=== PATIENT | female | born 1970 | race Caucasian/White ===

== ENCOUNTER 2016-06-06 17:15 | Emergency (ER) | payer OTHER ==
[2016-06-06 17:23] VITALS: BP 144/90; TEMP 98.8; BMI 25.8
--- NOTE | 2016-06-06 18:08 | ED.PDOC ---
General ED Provider: Dr. VIPIN URBINA JR Chief Complaint: Back Pain Stated Complaint: DOING DISHES TODAY AROUND 1400. RIGHT HAND STARTED TO BURN AND HURT.[End]back pain 98.8 82 20 95% 144/90 9/10 RIGHT SECOND MC TENDERNESS AND SWELLING SINCE ARISING NO KNOWN INJURY, TENDER SEVERE BURNING WHEN WASHING DISHES 2+ EDEMA. HYSTERECTOMY, TWO BLADDER TUCKS, DC TIMES TWO, LEFT FOOT SURGERY, RIGHT BIG TOE SURGERY, GB REMOVED,. [ End ]. dm copd depr anx bipolar Time Seen by Physician: 18:07 Mode of Arrival: Walk-In Information Source: Patient Exam Limitations: No limitations Primary Care Provider: HANNY NORTON Nursing and Triage Documentation Reviewed and Agree: No Review of Systems - Review Of Systems Constitutional: Reports: No symptoms Eyes: Reports: No symptoms Ears, Nose, Mouth, Throat: Reports: No symptoms Respiratory: Reports: No symptoms Cardiac: Reports: No symptoms GI: Reports: No symptoms : Reports: No symptoms Musculoskeletal: Reports: Joint pain (RIGHT SECOND MC TENDERNESS AND EDEMA - PAIN RADIATES UP TO ELBOW- NO FOREARM TENDERNESS) Neurological: Reports: No symptoms Endocrine: Reports: No symptoms Hematologic/Lymphatic: Reports: No symptoms All Other Systems: Other Past Medical History - Past Medical History Previously Healthy: No Endocrine: Reports: DM 2 Cardiovascular: Reports: None Respiratory: Reports: COPD Hematological: Reports: None Gastrointestinal: Reports: None Genitourinary: Reports: None Neuro/Psych: Reports: Anxiety, Depression, PTSD Musculoskeletal: Reports: Arthritis, Joint Pain Cancer: Reports: None Last Menstrual Period: 2003 Other Pertinent Past Medical History: polinoidal cyst x2, bladder tuck x2, bunion surg x2 - Surgical History General Surgical History: Reports: Hysterectomy (hysterectomy, D and C x2), Cholecystectomy, Orthopedic (Rt gr toe surgery, tarsal tunnel decompression x2) , Other (polinoidal cyst x2, bladder tuck x2, bunion surg x2,, oral surg) - Family History Family History: Reports: Unknown - Social History Smoking Status: Current some day smoker Hx Substance Use: No Alcohol Screening: None - Immunizations Tetanus Shot up to Date: Yes Physical Exam - Physical Exam Appearance: Well-appearing Pain Distress: Mild Neck: Supple Respiratory: Airway patent, Breath sounds equal, Respirations nonlabored, Rhonchi Cardiovascular: RRR, Pulses normal, No rub, No murmur Musculoskeletal: Normal strength, ROM intact, No edema, No calf tenderness ( FULL ROM HAND AND FINGERS DESPITE TENDERNESS NOTE LEFT FOOT SURGERY FEET INTACT NO LESIONS NOT DISCOLORATION ABOUT SURGICAL SCARS CONSISTENT WITH UNRESOLVED IRON DEPOSITS) Skin: Warm, Dry Neurological: Sensation intact, Motor intact, Reflexes intact, Cranial nerves intact, Alert, Oriented Psychiatric: Affect appropriate, Mood appropriate Interpretation - Radiology Interpretation Radiology Interpretation By: Radiologist Radiology Results: Negative Exam Interpreted: Other (right hand) Re-Evaluation - Re-Evaluation Time of Re-Evaluation: 20:09 (DISCUSSED INTERATION OF ANTIDEPRESSANT- PATIENT STATES SHE HALLUCINATES WITH ALEVE CAN ONLY TAKE DEMEROL AND ULTRAM) Status: Improved Critical Care Note - Critical Care Note Total Time (mins): 0 Course - Course Hematology/Chemistry: 06/06/16 18:54 Orders, Labs, Meds: Lab Review 06/06/16 18:54 WBC 10.16 RBC 5.18 Hgb 16.6 H Hct 44.9 MCV 86.7 MCH 32.0 H MCHC 37.0 H RDW Coeff of Ian 11.7 Plt Count 258 Immature Gran % (Auto) 0.4 Neut % (Auto) 52.9 Lymph % (Auto) 35.1 [place] % (Auto) 6.5 Eos % (Auto) 4.7 Baso % (Auto) 0.4 Immature Gran # (Auto) 0.0 Neut # 5.4 Lymph # 3.6 H [place] # 0.7 Eos # 0.5 Baso # 0.0 Orders Category Date Time Status BLOOD CULTURE Stat LAB 06/06/16 18:54 Received CBC W/ AUTO DIFF Stat LAB 06/06/16 18:54 Completed HAND, RIGHT 3 VIEWS Stat RADS 06/06/16 18:54 Completed Vital Signs: Temp Pulse Resp BP Pulse Ox 06/06/16 17:16 98.8 F 82 20 144/90 H 95 Departure - Departure Time of Disposition: 19:53 Disposition: HOME SELF-CARE Discharge Problem: Cellulitis Qualifiers: Site of cellulitis of extremity: upper extremity Laterality: right Instructions: Cellulitis (ED) Condition: Good Pt referred to PMD for follow-up: Yes Additional Instructions: BACTRIM ANTIBIOTIC TWICE A DAY TAKE TWO FIRST DOSE (NAPROSYN)ULTRAM FOR PAIN (NOTE BAD REACTION TO ALEVE) ELEVATE HAND ABOVE HEART TWICE A DAY FOR ONE HOUR RECHECK PMD 3-5 DAYS SOONER IF ANY WORSENING Please call your Family Physician as soon as possible to schedule a follow-up appointment. Prescriptions: Naproxen [Naprosyn] 500 mg PO Q12HR PRN #30 tablet PRN Reason: PAIN Sulfamethoxazole/Trimethoprim [Bactrim Ds 800/160 mg] 1 tab PO Q12HR #14 tablet Tramadol HCl [Ultram] 50 mg PO Q6H PRN #14 tablet PRN Reason: PAIN Allergies/Adverse Reactions: Allergies divalproex sodium Allergy (Severe, Verified 06/06/16 17:26) Unknown oxcarbazepine [From Trileptal] Allergy (Severe, Verified 06/06/16 17:26) made m esick kiwi Allergy (Intermediate, Verified 06/06/16 17:26) Vomiting acetaminophen [From Lortab] Adverse Reaction (Verified 06/06/16 17:26) aspirin [From Percodan] Adverse Reaction (Verified 06/06/16 17:26) codeine Adverse Reaction (Verified 06/06/16 17:26) hydrocodone bitartrate [From Lortab] Adverse Reaction (Verified 06/06/16 17:26) ibuprofen Adverse Reaction (Verified 06/06/16 17:26) ketorolac tromethamine [From Toradol] Adverse Reaction (Verified 06/06/16 17:26) metformin HCl [From Glucophage] Adverse Reaction (Verified 06/06/16 17:26) morphine Adverse Reaction (Verified 05/09/16 19:02) oxycodone HCl [From Percocet] Adverse Reaction (Verified 05/09/16 19:02) oxycodone terephthalate [From Percodan] Adverse Reaction (Verified 05/09/16 19: 02) peach [[place]] Adverse Reaction (Verified 05/09/16 19:02) propoxyphene napsylate [From Darvocet-N 100] Adverse Reaction (Verified 19:02) elisa Adverse Reaction (Verified 05/09/16 19:02) tomato [Tomato] Adverse Reaction (Verified 05/09/16 19:02) ziprasidone HCl [From Geodon] Adverse Reaction (Verified 05/09/16 19:02) ziprasidone mesylate [From Geodon] Adverse Reaction (Verified 05/09/16 19:02) peaches Adverse Reaction (Uncoded 05/09/16 19:02) Home Medications: Ambulatory Orders Quetiapine Fumarate [Seroquel] 100 mg PO BEDTIME 12/10/12 Lamotrigine [Lamictal] 200 mg PO DAILY 08/03/13 Fluoxetine HCl [Prozac] 40 mg PO DAILY 02/20/14 Trazodone HCl [Desyrel] 75 mg PO BEDTIME #30 01/01/16 Pantoprazole Sodium [Protonix] 40 mg PO DAILY #30 tablet. 03/31/16 Lamotrigine [Lamictal Xr] 250 mg PO BEDTIME #30 05/16/16 Naproxen [Naprosyn] 500 mg PO Q12HR PRN #30 tablet 06/06/16 Sulfamethoxazole/Trimethoprim [Bactrim Ds 800/160 mg] 1 tab PO Q12HR #14 tablet 06/06/16 Tramadol HCl [Ultram] 50 mg PO Q6H PRN #14 tablet 06/06/16
[2016-06-06 19:01] LABS: BASOPHILS % (AUTO) 0.4 % (0.0-3.0); EOSINOPHILS # (AUTO) 0.5 K/ul (0.0-0.7); EOSINOPHILS % (AUTO) 4.7 % (0.0-7.0); HEMATOCRIT 44.9 % (37.0-47.0); HEMOGLOBIN 16.6 g/dl (12.0-16.0); IMMATURE GRANULOCYTE % (AUTO) 0.4 % (0.0-5.0); LYMPHOCYTES # (AUTO) 3.6 K/uL (0.60-3.4); LYMPHOCYTES % (AUTO) 35.1 (10.0-50.0); MEAN CORPUSCULAR VOLUME 86.7 fl (81.0-99.0); MONOCYTES # (AUTO) 0.7 K/uL (0.4-2.0); MONOCYTES % (AUTO) 6.5 (0-10); NEUTROPHILS # (AUTO) 5.4 K/ul (2.0-6.9); NEUTROPHILS % (AUTO) 52.9; PLATELET COUNT 258 10^3/uL (140-440); RED BLOOD COUNT 5.18 10^6/ul (4.20-5.40); WHITE BLOOD COUNT 10.16 K/ul (4.6-10.2)
--- NOTE | 2016-06-06 19:23 | DI ---
EXAM: Right hand; PA, lateral, and oblique views HISTORY: Second metacarpal tenderness, swelling, and warmth. No injury FINDINGS: The bone density is maintained. The joint spaces are fairly well maintained. No acute er osions are detected. The soft tissues are normal. No fracture, subluxation, or radiopaque foreign b odies are detected. OPINION: Normal radiographs of the right hand.
== END 2016-06-06 20:36 | disposition home or self-care (01) ==
LOC: ED 17:15
DX: L03.113 Cellulitis of right upper limb (principal); M54.9 Dorsalgia, unspecified; F17.210 Nicotine dependence, cigarettes, uncomplicated; E11.9 Type 2 diabetes mellitus without complications
CPT/HCPCS: 36415; 85025; 87040; 99282

== ENCOUNTER 2016-08-12 12:07 | Outpatient (CLI) ==
[2016-08-12 14:08] LABS: ERYTHROCYTE SEDIMENTATION RATE 5 mm/hr (0-20); ESR INTERNAL QC INTERNAL QC VALID
[2016-08-13 07:54] LABS: RHEUMATOID ARTHRITIS FACTOR < 10.0 IU/mL (0.0-13.9)
[2016-08-13 15:08] LABS: ANTI-NUCLEAR ANTIBODY SCREEN Negative (Negative)
== END 2016-08-12 12:08 | disposition home or self-care (01) ==
LOC: LAB 12:07
PROVIDERS: ATTEND Nurse Practitioner Family
DX: M25.50 Pain in unspecified joint (principal)
CPT/HCPCS: 36415; 85651; 86038; 86430

== ENCOUNTER 2016-08-20 17:28 | Emergency (ER) | payer OTHER ==
[2016-08-20 17:34] VITALS: BP 135/80; TEMP 97.5; BMI 25.0
[2016-08-20] MEDS ORDERED: LIDOCAINE 1 % AMP 5 ML (SUTURES) ONE (18:32)
[2016-08-20] MEDS ORDERED: LIDOCAINE 1 % AMP 5 ML (SUTURES) SUBCUT STA (18:33)
--- NOTE | 2016-08-20 18:42 | ED.PDOC ---
General ED Provider: Dr. QIAN LEDESMA-ER Chief Complaint: Laceration Stated Complaint: i accidentally cut my calf Time Seen by Physician: 18:40 Mode of Arrival: Walk-In Information Source: Patient Exam Limitations: No limitations Primary Care Provider: HANNY NORTON Nursing and Triage Documentation Reviewed and Agree: Yes Skin Complaint Exam - Laceration/Lower Ext. Complaint/Exam Location of Injury: Right, Leg Mechanism of Injury: Laceration Onset/Duration: 4hrs Symptoms Are: Still present Initial Severity: Mild Current Severity: Mild Aggravating: Movement Alleviating: Compression Associated Signs and Symptoms: Denies: Fever, Chills, Erythema, Numbness, Tingling Differential Diagnoses: Laceration Review of Systems - Review Of Systems Constitutional: Reports: No symptoms Eyes: Reports: No symptoms Ears, Nose, Mouth, Throat: Reports: No symptoms Respiratory: Reports: No symptoms Cardiac: Reports: No symptoms GI: Reports: No symptoms : Reports: No symptoms Musculoskeletal: Reports: No symptoms Skin: Reports: No symptoms Neurological: Reports: No symptoms Endocrine: Reports: No symptoms Hematologic/Lymphatic: Reports: No symptoms All Other Systems: Reviewed and Negative Past Medical History - Past Medical History Previously Healthy: No Endocrine: Reports: DM 2 Cardiovascular: Reports: None Respiratory: Reports: COPD Hematological: Reports: None Gastrointestinal: Reports: None Genitourinary: Reports: None Neuro/Psych: Reports: Anxiety, Depression, PTSD Musculoskeletal: Reports: Arthritis, Joint Pain Cancer: Reports: None Last Menstrual Period: none Other Pertinent Past Medical History: polinoidal cyst x2, bladder tuck x2, bunion surg x2 - Surgical History General Surgical History: Reports: Hysterectomy (hysterectomy, D and C x2), Cholecystectomy, Orthopedic (Rt gr toe surgery, tarsal tunnel decompression x2) , Other (polinoidal cyst x2, bladder tuck x2, bunion surg x2,, oral surg) - Family History Family History: Reports: Unknown - Social History Smoking Status: Current some day smoker Hx Substance Use: No Alcohol Screening: None Lives: With family - Immunizations Tetanus Shot up to Date: Yes (2 years ago) Physical Exam - Physical Exam Appearance: Well-appearing Eyes: RAMBO, EOMI, Conjunctiva clear ENT: Ears normal, Nose normal, Oropharynx normal Neck: Supple Respiratory: Airway patent Cardiovascular: RRR GI/: Soft, Nontender, No masses, Bowel sounds normal, No Organomegaly Musculoskeletal: Normal strength, ROM intact, No edema, No calf tenderness Skin: Warm, Dry, Normal color Neurological: Sensation intact, Motor intact, Reflexes intact, Cranial nerves intact, Alert, Oriented Psychiatric: Affect appropriate Procedures - Laceration/Wound Repair No standard instances Wound Description: Linear Wound Length (cm): 1,.5cm right calf Wound Irrigated: Yes Wound Prep: Saline, Hibiclens Anesthesia: Lidocaine Wound Repaired With: Sutures Suture Size and Type: 4,.0 prolene Number of Sutures: 2 Layer Closure?: No Critical Care Note - Critical Care Note Total Time (mins): 0 Course - Course Orders, Labs, Meds: Orders Category Date Time Status Lidocaine HCl/Pf [Lidocaine 1 % Amp 5 ml (Sutures)] MEDS 08/20/16 18:32 Discontinued 5 ml .ROUTE .STK-MED ONE Lidocaine HCl/Pf [Lidocaine 1 % Amp 5 ml (Sutures)] MEDS 08/20/16 18:33 Discontinued 5 ml SUBCUT ONCE STA Medications Discontinued Medications Generic Name Dose Route Start Last Admin Trade Name Freq PRN Reason Stop Dose Admin Lidocaine HCl 5 ml 08/20/16 18:33 Lidocaine 1 % Amp 5 Ml (Sutures) SUBCUT 08/20/16 18:34 ONCE STA Vital Signs: Temp Pulse Resp BP Pulse Ox 08/20/16 17:29 97.5 F L 84 18 135/80 91 L Departure - Departure Time of Disposition: 18:42 Disposition: HOME SELF-CARE Discharge Problem: Laceration - injury Instructions: Laceration (ED) Condition: Good Pt referred to PMD for follow-up: Yes Additional Instructions: sutures out in 7 days--return if any signs of infection Allergies/Adverse Reactions: Allergies divalproex sodium Allergy (Severe, Verified 08/20/16 17:35) Unknown oxcarbazepine [From Trileptal] Allergy (Severe, Verified 08/20/16 17:35) made m esick kiwi Allergy (Intermediate, Verified 08/20/16 17:35) Vomiting acetaminophen [From Lortab] Adverse Reaction (Verified 08/20/16 17:35) aspirin [From Percodan] Adverse Reaction (Verified 08/20/16 17:35) codeine Adverse Reaction (Verified 08/20/16 17:35) hydrocodone bitartrate [From Lortab] Adverse Reaction (Verified 08/20/16 17:35) ibuprofen Adverse Reaction (Verified 08/20/16 17:35) ketorolac tromethamine [From Toradol] Adverse Reaction (Verified 08/20/16 17:35) metformin HCl [From Glucophage] Adverse Reaction (Verified 08/20/16 17:35) morphine Adverse Reaction (Verified 08/20/16 17:35) oxycodone HCl [From Percocet] Adverse Reaction (Verified 08/20/16 17:35) oxycodone terephthalate [From Percodan] Adverse Reaction (Verified 08/20/16 17: 35) peach [[place]] Adverse Reaction (Verified 08/20/16 17:35) propoxyphene napsylate [From Darvocet-N 100] Adverse Reaction (Verified 17:35) elisa Adverse Reaction (Verified 08/20/16 17:35) tomato [Tomato] Adverse Reaction (Verified 08/20/16 17:35) ziprasidone HCl [From Geodon] Adverse Reaction (Verified 08/20/16 17:35) ziprasidone mesylate [From Geodon] Adverse Reaction (Verified 08/20/16 17:35) peaches Adverse Reaction (Uncoded 05/09/16 19:02) Home Medications: Ambulatory Orders Quetiapine Fumarate [Seroquel] 100 mg PO BEDTIME 12/10/12 Fluoxetine HCl [Prozac] 40 mg PO DAILY 02/20/14 Trazodone HCl [Desyrel] 75 mg PO BEDTIME #30 01/01/16 Pantoprazole Sodium [Protonix] 40 mg PO DAILY #30 tablet. 03/31/16 Lamotrigine [Lamictal Xr] 250 mg PO BEDTIME #30 05/16/16 Naproxen [Naprosyn] 500 mg PO Q12HR PRN #30 tablet 06/06/16 Tramadol HCl [Ultram] 50 mg PO Q6H PRN #14 tablet 06/06/16 Disposition Discussed With: Patient
== END 2016-08-20 18:51 | disposition home or self-care (01) ==
LOC: ED 17:28
DX: S81.811A Laceration without foreign body, right lower leg, initial encounter (principal); W45.8XXA Other foreign body or object entering through skin, initial encounter; F17.210 Nicotine dependence, cigarettes, uncomplicated
CPT/HCPCS: 99282

== ENCOUNTER 2016-09-27 22:39 | Emergency (ER) | payer OTHER ==
[2016-09-27 22:44] VITALS: BP 126/79; TEMP 97.9; BMI 25.8
--- NOTE | 2016-09-27 23:20 | DI ---
EXAM: Three views of the left foot. HISTORY: Pain and swelling. FINDINGS: The bones are intact with no evidence of fracture. The joint spaces are maintained. Ther e is an enthesophyte along the plantar margin of the calcaneus. There is soft tissue swelling in th e forefoot. Impression: No evidence of fracture. Soft tissue swelling as described. Calcaneal enthesophyte.
[2016-09-27] MEDS ORDERED: DECADRON 4 MG/ML SDV IM STA (23:36)
[2016-09-27 23:49] LABS: BASOPHILS % (AUTO) 0.4 % (0.0-3.0); EOSINOPHILS # (AUTO) 0.4 K/ul (0.0-0.7); EOSINOPHILS % (AUTO) 4.6 % (0.0-7.0); HEMATOCRIT 41.7 % (37.0-47.0); HEMOGLOBIN 15.5 g/dl (12.0-16.0); IMMATURE GRANULOCYTE % (AUTO) 0.4 % (0.0-5.0); LYMPHOCYTES # (AUTO) 3.3 K/uL (0.60-3.4); LYMPHOCYTES % (AUTO) 35.1 (10.0-50.0); MEAN CORPUSCULAR HEMOGLOBIN 32.4 pg (27.0-31.0); MEAN CORPUSCULAR HGB CONC 37.2 (31.8-35.4); MEAN CORPUSCULAR VOLUME 87.1 fl (81.0-99.0); MONOCYTES # (AUTO) 0.7 K/uL (0.4-2.0); MONOCYTES % (AUTO) 7.2 (0-10); NEUTROPHILS # (AUTO) 4.9 K/ul (2.0-6.9); NEUTROPHILS % (AUTO) 52.3; PLATELET COUNT 198 10^3/uL (140-440); RED BLOOD COUNT 4.79 10^6/ul (4.20-5.40)
[2016-09-28 00:07] LABS: ANION GAP 17.3; BUN/CREATININE RATIO 22.22; CALCIUM 8.8 mg/dL (8.2-10.2); CREATININE 0.72 mg/dL (0.60-1.30); POTASSIUM 3.3 mmol/L (3.5-5.10); URIC ACID 6.9 mg/dL (2.4-6.0)
--- NOTE | 2016-09-28 00:09 | DI ---
EXAM: Left ankle three views HISTORY: Pain swelling COMPARISON: Left ankle 01/29/2011 FINDINGS: Mild soft tissue swelling is noted laterally. The ankle mortise and talar dome are intac t. There is a small plantar calcaneal spur.. There is no acute fracture. IMPRESSION: Mild soft tissue swelling is noted laterally. Small plantar calcaneal spur .
[2016-09-28 00:26] LABS: ERYTHROCYTE SEDIMENTATION RATE 12 mm/hr (0-20); ESR INTERNAL QC INTERNAL QC VALID
--- NOTE | 2016-09-28 00:36 | ED.PDOC ---
General ED Provider: Dr. QIAN LEDESMA-ER Chief Complaint: Foot Pain/Injury Stated Complaint: my ankle hurts Time Seen by Physician: 22:45 Mode of Arrival: Walk-In Information Source: Patient Exam Limitations: No limitations Primary Care Provider: HANNY NORTON Nursing and Triage Documentation Reviewed and Agree: Yes Musculoskeletal Complaint Exam - Ankle/Foot Complaint/Exam Location of Injury: Reports: Left, Ankle Mechanism of Injury: Reports: No known trauma Symptoms Are: Reports: Still present Onset of Pain: Reports: Immediate Initial Severity: Mild Current Severity: Mild Location: Reports: Discrete (left ankle) Character: Reports: Dull, Aching Alleviating: Reports: Rest, Position Aggravating: Reports: Movement, Weight bearing, Prolonged standing Able to Bear Weight: Yes Associated Signs and Symptoms: Reports: Swelling Gout Risk Factors: Reports: Diabetes, HTN Lower Extremity Findings: Present: Swelling, Tenderness, Limited range of motion Achilles Tendon Abnormality: No Tenderness: Present: Lateral malleolus Limited Range of Motion: Present: Inversion, Eversion, Dorsiflexion Differential Diagnosis: Gout, Sprain, Strain, Tendonitis, Bursitis Review of Systems - Review Of Systems Constitutional: Reports: No symptoms Eyes: Reports: No symptoms Ears, Nose, Mouth, Throat: Reports: No symptoms Respiratory: Reports: No symptoms Cardiac: Reports: No symptoms GI: Reports: No symptoms : Reports: No symptoms Musculoskeletal: Reports: Joint pain, Joint swelling Skin: Reports: No symptoms Neurological: Reports: No symptoms Endocrine: Reports: No symptoms Hematologic/Lymphatic: Reports: No symptoms All Other Systems: Reviewed and Negative Past Medical History - Past Medical History Previously Healthy: No Endocrine: Reports: DM 2 Cardiovascular: Reports: None Respiratory: Reports: COPD Hematological: Reports: None Gastrointestinal: Reports: None Genitourinary: Reports: None Neuro/Psych: Reports: Anxiety, Depression, PTSD Musculoskeletal: Reports: Arthritis, Joint Pain Cancer: Reports: None Last Menstrual Period: n/a Other Pertinent Past Medical History: polinoidal cyst x2, bladder tuck x2, bunion surg x2 - Surgical History General Surgical History: Reports: Hysterectomy (hysterectomy, D and C x2), Cholecystectomy, Orthopedic (Rt gr toe surgery, tarsal tunnel decompression x2) , Other (polinoidal cyst x2, bladder tuck x2, bunion surg x2,, oral surg) - Family History Family History: Reports: Unknown - Social History Smoking Status: Current some day smoker Hx Substance Use: No Alcohol Screening: None Physical Exam - Physical Exam Appearance: Well-appearing, No pain distress, Well-nourished Pain Distress: Mild Eyes: RAMBO, EOMI, Conjunctiva clear ENT: Ears normal, Nose normal, Oropharynx normal Neck: Supple Respiratory: Airway patent, Breath sounds clear Cardiovascular: RRR, Pulses normal, No rub, No murmur GI/: Soft, Nontender, No masses, Bowel sounds normal, No Organomegaly Musculoskeletal: Normal strength, Limited ROM Skin: Warm Neurological: Sensation intact, Motor intact, Reflexes intact, Cranial nerves intact, Alert, Oriented Psychiatric: Affect appropriate Interpretation - Radiology Interpretation Radiology Interpretation By: Radiologist Radiology Results: Negative Critical Care Note - Critical Care Note Total Time (mins): 0 Course - Course Hematology/Chemistry: 09/27/16 23:45 09/27/16 23:45 Orders, Labs, Meds: Lab Review 09/27/16 23:45 WBC 9.30 RBC 4.79 Hgb 15.5 Hct 41.7 MCV 87.1 MCH 32.4 H MCHC 37.2 H RDW Coeff of Ian 11.3 L Plt Count 198 Immature Gran % (Auto) 0.4 Neut % (Auto) 52.3 Lymph % (Auto) 35.1 [place] % (Auto) 7.2 Eos % (Auto) 4.6 Baso % (Auto) 0.4 Immature Gran # (Auto) 0.0 Neut # 4.9 Lymph # 3.3 [place] # 0.7 Eos # 0.4 Baso # 0.0 ESR 12 Sodium 138 Potassium 3.3 L Chloride 104 Carbon Dioxide 20 L Anion Gap 17.3 BUN 16 Creatinine 0.72 Estimated GFR (MDRD) 88.00 BUN/Creatinine Ratio 22.22 Glucose 284 H Uric Acid 6.9 H Calcium 8.8 Orders Category Date Time Status BASIC METABOLIC PANEL Stat LAB 09/27/16 23:45 Completed CBC W/ AUTO DIFF Stat LAB 09/27/16 23:45 Completed ESR Stat LAB 09/27/16 23:45 Completed URIC ACID Stat LAB 09/27/16 23:45 Completed Dexamethasone 4 mg/ml Inj [Decadron 4 mg/ml Sdv] MEDS 09/27/16 23:36 Discontinued 4 mg IM ONCE STA ANKLE, LEFT MIN 3 VIEWS Stat RADS 09/27/16 23:35 Completed FOOT, LEFT 3 VIEWS Stat RADS 09/27/16 22:55 Completed Medications Discontinued Medications Generic Name Dose Route Start Last Admin Trade Name Robert PRN Reason Stop Dose Admin Dexamethasone Sodium Phosphate 4 mg 09/27/16 23:36 09/27/16 23:47 Decadron 4 Mg/Ml Sdv IM 09/27/16 23:37 4 mg ONCE STA Administration Vital Signs: Temp Pulse Resp BP Pulse Ox 09/27/16 22:40 97.9 F 85 16 126/79 95 Departure - Departure Time of Disposition: 00:35 Disposition: HOME SELF-CARE Discharge Problem: Ankle pain Qualifiers: Laterality: left Chronicity: acute Qualifier Code: (M25.572) Pain in left ankle and joints of left foot Instructions: Arthralgia (ED) Condition: Good Pt referred to PMD for follow-up: Yes Additional Instructions: elevate ankle tonight--return reis Allergies/Adverse Reactions: Allergies divalproex sodium Allergy (Severe, Verified 09/27/16 22:44) Unknown oxcarbazepine [From Trileptal] Allergy (Severe, Verified 09/27/16 22:44) made m esick kiwi Allergy (Intermediate, Verified 09/27/16 22:44) Vomiting acetaminophen [From Lortab] Adverse Reaction (Verified 09/27/16 22:44) aspirin [From Percodan] Adverse Reaction (Verified 09/27/16 22:44) codeine Adverse Reaction (Verified 09/27/16 22:44) hydrocodone bitartrate [From Lortab] Adverse Reaction (Verified 09/27/16 22:44) ibuprofen Adverse Reaction (Verified 09/27/16 22:44) ketorolac tromethamine [From Toradol] Adverse Reaction (Verified 09/27/16 22:44) metformin HCl [From Glucophage] Adverse Reaction (Verified 09/27/16 22:44) morphine Adverse Reaction (Verified 09/27/16 22:44) oxycodone HCl [From Percocet] Adverse Reaction (Verified 09/27/16 22:44) oxycodone terephthalate [From Percodan] Adverse Reaction (Verified 09/27/16 22: 44) peach [[place]] Adverse Reaction (Verified 09/27/16 22:44) propoxyphene napsylate [From Darvocet-N 100] Adverse Reaction (Verified 22:44) elisa Adverse Reaction (Verified 09/27/16 22:44) tomato [Tomato] Adverse Reaction (Verified 09/27/16 22:44) ziprasidone HCl [From Geodon] Adverse Reaction (Verified 09/27/16 22:44) ziprasidone mesylate [From Geodon] Adverse Reaction (Verified 09/27/16 22:44) peaches Adverse Reaction (Uncoded 09/27/16 22:44) Home Medications: Ambulatory Orders Quetiapine Fumarate [Seroquel] 100 mg PO BEDTIME 12/10/12 Fluoxetine HCl [Prozac] 40 mg PO DAILY 02/20/14 Trazodone HCl [Desyrel] 75 mg PO BEDTIME #30 01/01/16 Pantoprazole Sodium [Protonix] 40 mg PO DAILY #30 tablet. 03/31/16 Lamotrigine [Lamictal Xr] 250 mg PO BEDTIME #30 05/16/16 Disposition Discussed With: Patient
== END 2016-09-28 00:55 | disposition home or self-care (01) ==
LOC: ED 22:39
DX: M25.572 Pain in left ankle and joints of left foot (principal); F17.210 Nicotine dependence, cigarettes, uncomplicated; Z79.899 Other long term (current) drug therapy
CPT/HCPCS: 36415; 80048; 84550; 85025; 85651; 96372; 99283

== ENCOUNTER 2016-12-02 10:00 | Outpatient (RCR) ==
--- NOTE | 2016-11-25 10:56 | RS.OTEVAL ---
Subjective Date of Note: 11/25/16 Visit #: 1 Date of Evaluation: 11/25/16 Payer Source: MEDICARE Date of Onset/Injury/Change in Status: 10/10/16 Surgery Performed?: Yes Date of Procedure: 11/13/16 Treatment Diagnosis: Carpal Tunnel Syndrome Treatment Side (optional): Right *Precautions: Sutures, edema of RUE Prior Level of Function.....Patient was independent with: ADL's, Self Care, Work /Vocation, Caregiving, Ambulation/Mobility, Community Integration/Access History of Condition/Mechanism of Injury: Pt reported her RUE hand hurt so bad that she could not touch it to anything. She could not use it and it burned. She said her pain has really gotten better. Functional Limitations: Sleep, Self Care, ADL's, Carrying Current Complaints/Gains: She had pain yesterday. She said her pain has lessened and now she can touch her fingers to her thumb. Medical History Medical History: Diabetes Medical History Comments:: Had a cut on her RLE and had stitches in ER last month. RUE carpal tunnel release on November 13, 2016. 2 bladder tucks, 2 bunions removed from toes. 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 Pain Assessment - Pain Description Pain Description: Burning Pain Location: Right hypothenar eminence. Pain Description: tightness Current Pain Intensity: 0 Worst Pain Intensity: 8 Functional Outcome Measures - G Codes & Severity Modifier G Codes: G8984 carry current status is CM is 85% impaired. G8985 Carry goals status is CH 0 % Source of G Code score: Carrying, moving, and handling Observation - Observation Inspection: Pt has sutures in Right CTR. Handedness: Left Girth Measurement Upper: RUE Thumb is 6.7 CM, Index 6.8 CM, Long 6.8 CM. Ring 6.6 CM, small 6.0 CM,. LUE Thumb is 7.2 CM, Index 6.5 CM, Long 6.5 CM, Ring 6.4 CM, Small 5.5 CM Additional Comments: Pt is able to make a full fist with tightness of thumb hypothenar eminence. Shoulder ROM: Bilaterally WFL's Shoulder Muscle Strength: Bilaterally WFL's Elbow ROM: Bilaterally WFL's Elbow Muscle Strength: Bilaterally WFL's Wrist ROM: Left WFL's Wrist Muscle Strength: Left WFL's - Right Wrist/Hand ROM Right Wrist Extension: 60 Right Wrist Flexion: 50 (with pain) Right Wrist Radial Deviation: 15 Right Wrist Ulnar Deviation: 15 Right Forearm Pronation: 90 Right Forearm Supination: 90 Right Wrist ROM Testing Limitations: Muscle Weakness Right Hand ROM: Pt can make a full fist - Right Wrist Strength Right Wrist Extension: 4- Good- Right Wrist Flexion: 3+ Fair+ Right Wrist Radial Deviation: 4- Good- Right Wrist Ulnar Deviation: 4- Good- Right Forearm Pronation: 4+ Good + Right Forearm Supination: 4+ Good + - Special Tests Tinel Test: Negative Right Clinical Fellow Strength Left Hand Clinical Fellow Strength: na Right Hand Clinical Fellow Strength: na due to sutures Palpation Palpation Findings: Tenderness Sensation Right Upper Extremity: Intact/Normal Sensation Description: Within Normal Limits Comments: No complaints of impaired sensation of RUE hand today. Modalities - Treatment Modality: Ultrasound Parameters/Method Applied: .4 w/cm2 to decrease edema and tenderness. Treatment Area: RUE Palm/wrist Patient Position: Sitting Interventions - Exercise/Activities Exercise/Activities/Manual Therapy: Tendon glide education and patient demonstrated understanding by completing them with her tendon pictures. - Charges Total Direct Minutes: 60 Total Treatment Time: 30 Procedures billed for this date of service:: Coreen Moderate, Therex Assessment Assessment: Pt has sutures and tenderness. Pt has mild edema of digits and palm of RUE hand. Patient Education: Education of diagnosis, Home Exercise Program Rehab Potential: Good Short Term Goals Goal #1: Pt to increase AROM of Wrist flexion to 0-55 deg. without tenderness Goal to be met by: 12/02/16 Progress towards goal: Progressing Goal #2: Pt to increase energy control officer to 15# Goal to be met by: 12/02/16 Goal #3: Pt to be independent with scar massage. Goal to be met by: 12/02/16 Goal #4: Pt to be independent with HEP Goal to be met by: 12/02/16 Paper Mill Superintendent Goals Goal #1: Pt to increase AROM of Wrist flexion to WFL without tenderness Goal to be met by: 12/02/16 Goal #2: Pt to increase mass energy control officer of RUE to 30# Goal to be met by: 12/09/16 Goal #3: Pt to be independent with scar massage of RUE Goal to be met by: 12/09/16 Goal #4: Pt to be independent with HEP. Goal to be met by: 12/09/16 Plan - Treatment to be provided Procedures: Therapeutic Exercises, Therapeutic Activity, Neuromuscular Rehab, Massage, Patient Education Modalities: Ultrasound/Phonophoresis - Treatment Plan Frequency: 2 X week Duration: 2 weeks ORDER # VISITS AND/OR THROUGH DATE: 4 - Treatment Code (1) Right carpal tunnel syndrome Comments: Current CM is 85%, and Goal is CH to 0% for Carrying, moving, and handling.
--- NOTE | 2016-11-29 13:33 | RS.OTDNOTE ---
Subjective Date of Note: 11/29/16 Visit #: 2 Date of Evaluation: 11/25/16 Payer Source: MEDICARE Date of Onset/Injury/Change in Status: 10/10/16 Surgery Performed?: Yes Date of Procedure: 11/13/16 Treatment Diagnosis: Carpal Tunnel Syndrome Treatment Side (optional): Right *Precautions: Sutures, edema of RUE Prior Level of Function.....Patient was independent with: ADL's, Self Care, Work /Vocation, Caregiving, Ambulation/Mobility, Community Integration/Access History of Condition/Mechanism of Injury: Pt reported her RUE hand hurt so bad that she could not touch it to anything. She could not use it and it burned. She said her pain has really gotten better. Functional Limitations: Sleep, Self Care, ADL's, Carrying Current Complaints/Gains: Pt returned to MD yesterday and had sutures removed. Pt states pain/tenderness with palpation on several areas. Pt has c/o numbness in digits 1-3 and the most increased c/o pain with thumb to palm P/AROM. Clear/ cloudy discharge from incision site with wrist PROM, steri-strips applied. Pain Assessment - Pain Description Pain Description: Burning, Tightness, Radiating, Sharp, Throbbing, Aching, Acute Pain Location: Right hypothenar eminence. Pain Description: tightness Current Pain Intensity: 3 Worst Pain Intensity: 7 Modalities - Treatment Modality: Ultrasound Parameters/Method Applied: .04w/cm2 wrist and thenar eminence Patient Position: Sitting Interventions - Exercise/Activities Exercise/Activities/Manual Therapy: Tendon glide education continued with patient performing utilizing print out with pictures as guide. Digit/thumb opposition, wrist flexion/extension, pro/supination and ball squeezes also performed. Retrograde massage ed and tolerated well - Charges Total Direct Minutes: 40 Total Treatment Time: 40 Procedures billed for this date of service:: US EX MT Assessment Patient Education: Education of diagnosis, Body/Joint mechanics, Home Exercise Program, Home Safety, Activity Modification, Education of Plan of Care Patient demonstrates compliance with HEP?: Yes Short Term Goals Goal #1: Pt to increase AROM of Wrist flexion to 0-55 deg. without tenderness Goal to be met by: 12/02/16 Progress towards goal: Progressing Goal #2: Pt to increase monitor technician to 15# Goal to be met by: 12/02/16 Progress towards goal: Progressing Goal #3: Pt to be independent with scar massage. Goal to be met by: 12/02/16 Progress towards goal: Progressing Goal #4: Pt to be independent with HEP Goal to be met by: 12/02/16 Progress towards goal: Progressing Potter Or Ceramic Artist Goals Goal #1: Pt to increase AROM of Wrist flexion to WFL without tenderness Goal to be met by: 12/02/16 Progress towards goal: Progressing Goal #2: Pt to increase mass monitor technician of RUE to 30# Goal to be met by: 12/09/16 Progress towards goal: Progressing Goal #3: Pt to be independent with scar massage of RUE Goal to be met by: 12/09/16 Progress towards goal: Progressing Goal #4: Pt to be independent with HEP. Goal to be met by: 12/09/16 Progress towards goal: Progressing Plan PLAN OF CARE EXPIRES ON:: 12/09/16 ORDER # VISITS AND/OR THROUGH DATE: 4 PLAN: Continue Plan of Care Frequency: 2 X week Duration: 1 week
== END 2016-12-09 ==
PROVIDERS: ATTEND Orthopaedic Surgery
DX: G56.01 Carpal tunnel syndrome, right upper limb (principal)

== ENCOUNTER 2016-12-11 13:11 | Outpatient (RCR) ==
--- NOTE | 2016-12-11 14:02 | RS.OTDNOTE ---
Subjective Date of Note: 12/11/16 Visit #: 4 Date of Evaluation: 11/25/16 Payer Source: MEDICARE Date of Onset/Injury/Change in Status: 10/10/16 Surgery Performed?: Yes Treatment Diagnosis: Carpal Tunnel Syndrome Treatment Side (optional): Right *Precautions: Sutures, edema of RUE Prior Level of Function.....Patient was independent with: ADL's, Self Care, Work /Vocation, Caregiving, Ambulation/Mobility, Community Integration/Access History of Condition/Mechanism of Injury: Pt reported her RUE hand hurt so bad that she could not touch it to anything. She could not use it and it burned. She said her pain has really gotten better. Functional Limitations: Sleep, Self Care, ADL's, Carrying Current Complaints/Gains: Pt states c/o wkness. States she has the most trouble with opening jars and soda's. States 0 c/o pain at moment but states some "shooting pain" at times that goes from her wrist to her elbow, but only lasts for a few seconds to 2 mins at a time. Pain Assessment - Pain Description Pain Description: Dull Pain Location: Right hypothenar eminence. Pain Description: tightness Current Pain Intensity: 0 Worst Pain Intensity: 3 Modalities - Treatment Modality: Ultrasound Parameters/Method Applied: .04w/cm2 x 10 mins with prolonged wrist stretch Patient Position: Sitting Interventions - Exercise/Activities Exercise/Activities/Manual Therapy: Tendon glide, retro-grade massage, and HEP education performed. Red/green t-putty, digit opposition, medium strength hand gripper and red digi-flex performed. - Charges Total Direct Minutes: 35 Total Treatment Time: 35 Procedures billed for this date of service:: US EX Assessment Patient Education: Education of diagnosis, Body/Joint mechanics, Home Exercise Program, Home Safety, Activity Modification, Education of Plan of Care Patient demonstrates compliance with HEP?: Yes Short Term Goals Goal #1: Pt to increase AROM of Wrist flexion to 0-55 deg. without tenderness Goal to be met by: 12/02/16 Progress towards goal: Met Goal #2: Pt to increase counseling services manager to 15# Goal to be met by: 12/02/16 Progress towards goal: Partially Met Comments: 14# 12# 16# Goal #3: Pt to be independent with scar massage. Goal to be met by: 12/02/16 Progress towards goal: Partially Met Goal #4: Pt to be independent with HEP Goal to be met by: 12/02/16 Progress towards goal: Met Ship Washer Goals Goal #1: Pt to increase AROM of Wrist flexion to WFL without tenderness Goal to be met by: 12/02/16 Progress towards goal: Met Goal #2: Pt to increase mass counseling services manager of RUE to 30# Goal to be met by: 12/11/16 Progress towards goal: Not Met Goal #3: Pt to be independent with scar massage of RUE Goal to be met by: 12/09/16 Progress towards goal: Partially Met Goal #4: Pt to be independent with HEP. Goal to be met by: 12/09/16 Progress towards goal: Met Plan PLAN OF CARE EXPIRES ON:: 12/11/16 ORDER # VISITS AND/OR THROUGH DATE: 4 PLAN: Plan for Discharge Frequency: DC Duration: DC
== END 2017-01-09 ==
PROVIDERS: ATTEND Orthopaedic Surgery
DX: G56.01 Carpal tunnel syndrome, right upper limb (principal)

== ENCOUNTER 2016-12-21 17:07 | Emergency (ER) ==
[2016-12-21 17:24] VITALS: BP 130/86; TEMP 98.6; BMI 24.4
[2016-12-21] MEDS ORDERED: TORADOL IM STA (17:45)
--- NOTE | 2016-12-21 17:52 | ED.PDOC ---
General ED Provider: Dr. SVITLANA KOCH Chief Complaint: Wrist Pain/Injury Stated Complaint: Patient grand son fell on left wrist ever since hurting to move, had h/o CTS repair. Time Seen by Physician: 18:06 Mode of Arrival: Walk-In Information Source: Patient Primary Care Provider: HANNY NORTON Nursing and Triage Documentation Reviewed and Agree: Yes Musculoskeletal Complaint Exam - Hand/Wrist Complaint/Exam Location of Pain: Reports: Left, Wrist Mechanism of Injury: Reports: Trauma Symptoms Are: Still present Onset of Pain: Reports: Immediate Initial Severity: Moderate Current Severity: Moderate Location: Reports: Discrete Character: Reports: Aching, Throbbing Alleviating: Reports: None Aggravating: Reports: Movement Associated Signs and Symptoms: Denies: Swelling, Redness, Bruising, Fever, Weakness, Numbness, Tingling Dominant Hand: Right Related Surgical History: Reports: None Hand/Wrist Findings: Present: Swelling Differential Diagnoses: Closed Fracture, Sprain Review of Systems - Review Of Systems Constitutional: Reports: No symptoms Eyes: Reports: No symptoms Ears, Nose, Mouth, Throat: Reports: No symptoms Respiratory: Reports: No symptoms Cardiac: Reports: No symptoms GI: Reports: No symptoms : Reports: No symptoms Musculoskeletal: Reports: Joint pain, Joint swelling, Muscle pain Skin: Reports: No symptoms Neurological: Reports: No symptoms Endocrine: Reports: No symptoms Hematologic/Lymphatic: Reports: No symptoms All Other Systems: Reviewed and Negative Past Medical History - Past Medical History Previously Healthy: No Endocrine: Reports: DM 2 Cardiovascular: Reports: None Respiratory: Reports: COPD Hematological: Reports: None Gastrointestinal: Reports: None Genitourinary: Reports: None Neuro/Psych: Reports: Anxiety, Depression, PTSD Musculoskeletal: Reports: Arthritis, Joint Pain Cancer: Reports: None Last Menstrual Period: n/a Other Pertinent Past Medical History: polinoidal cyst x2, bladder tuck x2, bunion surg x2 - Surgical History General Surgical History: Reports: Hysterectomy (hysterectomy, D and C x2), Cholecystectomy, Orthopedic (Rt gr toe surgery, tarsal tunnel decompression x2) , Other (polinoidal cyst x2, bladder tuck x2, bunion surg x2,, oral surg) - Family History Family History: Reports: Unknown - Social History Smoking Status: Current some day smoker Smoking Cessation Counseling Time: > 3 min - 10 min Hx Substance Use: No Alcohol Screening: None Physical Exam - Physical Exam Appearance: Well-appearing, No pain distress, Well-nourished Eyes: RAMBO, EOMI, Conjunctiva clear ENT: Ears normal, Nose normal, Oropharynx normal Respiratory: Airway patent, Breath sounds clear, Breath sounds equal, Respirations nonlabored Cardiovascular: RRR, Pulses normal, No rub, No murmur GI/: Soft, Nontender, No masses, Bowel sounds normal, No Organomegaly Musculoskeletal: Normal strength, ROM intact, No edema, No calf tenderness Skin: Warm, Dry, Normal color Neurological: Sensation intact, Motor intact, Reflexes intact, Cranial nerves intact, Alert, Oriented Psychiatric: Affect appropriate, Mood appropriate Critical Care Note - Critical Care Note Total Time (mins): 0 Course - Course Orders, Labs, Meds: Orders Category Date Time Status Ketorolac Tromethamine [Toradol] MEDS 12/21/16 17:45 Discontinued 30 mg IM ONCE STA WRIST, RIGHT 3 VIEWS Stat RADS 12/21/16 17:45 Taken Medications Discontinued Medications Generic Name Dose Route Start Last Admin Trade Name Marvq PRN Reason Stop Dose Admin Ketorolac Tromethamine 30 mg 12/21/16 17:45 Toradol IM 12/21/16 17:46 ONCE STA Vital Signs: Temp Pulse Resp BP Pulse Ox 12/21/16 17:08 98.6 F 86 16 130/86 95 Departure - Departure Time of Disposition: 18:09 Disposition: HOME SELF-CARE Discharge Problem: Injury of wrist Instructions: Wrist Injury (ED) Condition: Good Pt referred to PMD for follow-up: Yes Additional Instructions: needs f/u with Ortho rest hot pack Allergies/Adverse Reactions: Allergies divalproex sodium Allergy (Severe, Verified 12/21/16 17:12) Unknown oxcarbazepine [From Trileptal] Allergy (Severe, Verified 12/21/16 17:12) made m esick kiwi Allergy (Intermediate, Verified 12/21/16 17:12) Vomiting acetaminophen [From Lortab] Adverse Reaction (Verified 12/21/16 17:12) aspirin [From Percodan] Adverse Reaction (Verified 12/21/16 17:12) codeine Adverse Reaction (Verified 12/21/16 17:12) hydrocodone bitartrate [From Lortab] Adverse Reaction (Verified 12/21/16 17:12) ibuprofen Adverse Reaction (Verified 12/21/16 17:12) ketorolac tromethamine [From Toradol] Adverse Reaction (Verified 12/21/16 17:12) metformin HCl [From Glucophage] Adverse Reaction (Verified 12/21/16 17:12) morphine Adverse Reaction (Verified 12/21/16 17:12) oxycodone HCl [From Percocet] Adverse Reaction (Verified 12/21/16 17:12) oxycodone terephthalate [From Percodan] Adverse Reaction (Verified 12/21/16 17: 12) peach [[place]] Adverse Reaction (Verified 12/21/16 17:12) propoxyphene napsylate [From Darvocet-N 100] Adverse Reaction (Verified 17:12) elisa Adverse Reaction (Verified 12/21/16 17:12) tomato [Tomato] Adverse Reaction (Verified 12/21/16 17:12) ziprasidone HCl [From Geodon] Adverse Reaction (Verified 12/21/16 17:12) ziprasidone mesylate [From Geodon] Adverse Reaction (Verified 12/21/16 17:12) peaches Adverse Reaction (Uncoded 09/27/16 22:44) Home Medications: Ambulatory Orders Fluoxetine HCl [Prozac] 40 mg PO DAILY 02/20/14 Pantoprazole Sodium [Protonix] 40 mg PO DAILY #30 tablet. 03/31/16 Disposition Discussed With: Patient, Family
[2016-12-21] MEDS ORDERED: ULTRAM PO STA (18:35)
--- NOTE | 2016-12-21 19:12 | DI ---
EXAM: Right wrist three-view HISTORY: Injury and pain COMPARISON: None FINDINGS: The bones are normal. The joints are normal. No focal soft tissue abnormality. IMPERSSION: Normal examination.
== END 2016-12-21 18:49 | disposition home or self-care (01) ==
LOC: ED 17:07
DX: S69.91XA Unspecified injury of right wrist, hand and finger(s), initial encounter (principal); W50.0XXA Accidental hit or strike by another person, initial encounter; F17.210 Nicotine dependence, cigarettes, uncomplicated
CPT/HCPCS: 99283

== ENCOUNTER 2017-02-02 02:22 | Emergency (ER) ==
[2017-02-02 02:43] VITALS: BP 161/95; TEMP 98.2; BMI 24.3
[2017-02-02] MEDS ORDERED: SOLU-MEDROL 125 MG IM STA (02:46)
[2017-02-02] MEDS ORDERED: DUONEB NEB STA (02:47)
--- NOTE | 2017-02-02 02:52 | ED.PDOC ---
General ED Provider: Dr. GRACE SANDERS Chief Complaint: Sore Throat Stated Complaint: Pateint is a 46 year old female who comes to the ER with piercing, burning, stabbing pain in throat, aggravated by non- productive cough. Time Seen by Physician: 02:49 Mode of Arrival: Walk-In Information Source: Patient Exam Limitations: No limitations Primary Care Provider: HANNY NORTON Nursing and Triage Documentation Reviewed and Agree: Yes Review of Systems - Review Of Systems Constitutional: Reports: No symptoms Eyes: Reports: No symptoms Ears, Nose, Mouth, Throat: Reports: Throat pain Respiratory: Reports: Cough, Short of air Cardiac: Reports: No symptoms GI: Reports: No symptoms : Reports: No symptoms Musculoskeletal: Reports: No symptoms Skin: Reports: No symptoms Neurological: Reports: No symptoms Endocrine: Reports: No symptoms Hematologic/Lymphatic: Reports: No symptoms All Other Systems: Reviewed and Negative Past Medical History - Past Medical History Previously Healthy: No Endocrine: Reports: DM 2 Cardiovascular: Reports: None Respiratory: Reports: COPD Hematological: Reports: None Gastrointestinal: Reports: None Genitourinary: Reports: None Neuro/Psych: Reports: Anxiety, Depression, PTSD Musculoskeletal: Reports: Arthritis, Joint Pain Cancer: Reports: None Last Menstrual Period: N/A - hysterectomy Other Pertinent Past Medical History: polinoidal cyst x2, bladder tuck x2, bunion surg x2 - Surgical History General Surgical History: Reports: Hysterectomy (hysterectomy, D and C x2), Cholecystectomy, Orthopedic (Rt gr toe surgery, tarsal tunnel decompression x2) , Other (polinoidal cyst x2, bladder tuck x2, bunion surg x2,, oral surg) - Family History Family History: Reports: Unknown - Social History Smoking Status: Current some day smoker Hx Substance Use: No Alcohol Screening: None - Immunizations Tetanus Shot up to Date: Yes Physical Exam - Physical Exam Appearance: Ill-appearing, Well-nourished Ill-appearing: Mild Pain Distress: Mild Eyes: RAMBO, EOMI, Conjunctiva clear ENT: Ears normal, Nose normal, Oropharynx normal Neck: Supple Respiratory: Breath sounds diminished Cardiovascular: RRR, Pulses normal, No rub, No murmur GI/: Soft, Nontender, No masses, Bowel sounds normal, No Organomegaly Musculoskeletal: Normal strength, ROM intact, No edema, No calf tenderness Skin: Warm, Dry, Normal color Neurological: Alert, Oriented Psychiatric: Anxious Critical Care Note - Critical Care Note Total Time (mins): 0 Course - Course Orders, Labs, Meds: Orders Category Date Time Status NEBULIZER TREATMENT Stat CARDIO 02/02/17 02:47 Ordered RAPID FLU A/B Stat LAB 02/02/17 02:47 Uncollected STREP SCREEN Stat LAB 02/02/17 02:47 Uncollected Ipratropium/Albuterol Neb [Duoneb] MEDS 02/02/17 02:47 Stat 1 vial NEB ONCE STA Methylprednisolone Sod Succ/Pf [Solu-Medrol 125 mg] MEDS 02/02/17 02:46 Stat 125 mg IM ONCE STA Medications Discontinued Medications Generic Name Dose Route Start Last Admin Trade Name Freq PRN Reason Stop Dose Admin Albuterol/Ipratropium 1 vial 02/02/17 02:47 Duoneb NEB 02/02/17 02:48 ONCE STA Methylprednisolone Sodium Succinate 125 mg 02/02/17 02:46 Solu-Medrol 125 Mg IM 02/02/17 02:47 ONCE STA Vital Signs: Temp Pulse Resp BP Pulse Ox 02/02/17 02:34 98.2 F 86 19 161/95 H 94 L Departure - Departure Time of Disposition: 03:21 Disposition: HOME SELF-CARE Discharge Problem: Sore throat symptom, Cough Pharyngitis Qualifiers: Pharyngitis/tonsillitis etiology: other specified organisms Qualified Code(s): J02.8 - Acute pharyngitis due to other specified organisms Instructions: Pharyngitis (ED) Condition: Fair Pt referred to PMD for follow-up: Yes Additional Instructions: Stop smoking Follow up with PCP in 3 days Prescriptions: Methylprednisolone [Medrol Dosepak] 4 mg PO DIRECTED #1 pkg Allergies/Adverse Reactions: Allergies divalproex sodium Allergy (Severe, Unverified 02/02/17 02:27) Unknown oxcarbazepine [From Trileptal] Allergy (Severe, Unverified 02/02/17 02:27) made m justynack kiwi Allergy (Intermediate, Unverified 02/02/17 02:27) Vomiting acetaminophen [From Lortab] Adverse Reaction (Unverified 02/02/17 02:27) aspirin [From Percodan] Adverse Reaction (Unverified 02/02/17 02:27) codeine Adverse Reaction (Unverified 02/02/17 02:27) hydrocodone bitartrate [From Lortab] Adverse Reaction (Unverified 02/02/17 02:27 ) ibuprofen Adverse Reaction (Unverified 02/02/17 02:27) ketorolac tromethamine [From Toradol] Adverse Reaction (Unverified 02/02/17 02: 27) metformin HCl [From Glucophage] Adverse Reaction (Unverified 02/02/17 02:27) morphine Adverse Reaction (Unverified 02/02/17 02:27) oxycodone HCl [From Percocet] Adverse Reaction (Unverified 02/02/17 02:27) oxycodone terephthalate [From Percodan] Adverse Reaction (Unverified 02/02/17 02 :27) peach [[place]] Adverse Reaction (Unverified 02/02/17 02:27) propoxyphene napsylate [From Darvocet-N 100] Adverse Reaction (Unverified 02:27) risperidone [From Risperdal] Adverse Reaction (Verified 02/02/17 02:27) elisa Adverse Reaction (Unverified 02/02/17 02:27) tomato [Tomato] Adverse Reaction (Unverified 02/02/17 02:27) ziprasidone HCl [From Geodon] Adverse Reaction (Unverified 02/02/17 02:27) ziprasidone mesylate [From Geodon] Adverse Reaction (Unverified 02/02/17 02:27) peaches Adverse Reaction (Uncoded 02/02/17 02:27) Home Medications: Ambulatory Orders Fluoxetine HCl [Prozac] 40 mg PO DAILY 02/20/14 Pantoprazole Sodium [Protonix] 40 mg PO DAILY #30 tablet. 03/31/16 Tramadol HCl 50 mg PO BID #14 tablet 12/21/16 Aspirin/Acetaminophen/Caffeine [Excedrin Migraine Caplet] 2 tab PO Q4-6H PRN Diphenhydram/PE/Dm/Acetamin/GG [Daytime-Cold Nbkojwwth-Yqa-Eoa] 1 tab PO BID PRN 02/02/17 Methylprednisolone [Medrol Dosepak] 4 mg PO DIRECTED #1 pkg 02/02/17
[2017-02-02 03:10] LABS: FLU INTERNAL QC INTERNAL QC VALID; RAPID FLU A NEGATIVE (NEGATIVE); RAPID FLU B NEGATIVE (NEGATIVE)
[2017-02-02] MEDS ORDERED: TYLENOL PO STA (03:20)
== END 2017-02-02 03:40 | disposition home or self-care (01) ==
LOC: ED 02:22
DX: J02.9 Acute pharyngitis, unspecified (principal); R05 Cough; F17.210 Nicotine dependence, cigarettes, uncomplicated
CPT/HCPCS: 87651; 87804; 87880; 94640; 96372; 99283

== ENCOUNTER 2017-02-03 05:33 | Inpatient (IN) ==
[2017-02-03] MEDS ORDERED: DUONEB NEB STA (05:47)
[2017-02-03] MEDS ORDERED: DECADRON 4 MG/ML SDV IM STA (05:48)
[2017-02-03] MEDS ORDERED: XOPENEX 1.25 MG NEB STA (05:48)
[2017-02-03 06:10] LABS: BASOPHILS # (AUTO) 0.1 K/uL (0-0.2); BASOPHILS % (AUTO) 0.4 % (0.0-3.0); EOSINOPHILS % (AUTO) 0.2 % (0.0-7.0); HEMATOCRIT 41.2 % (37.0-47.0); HEMOGLOBIN 15.6 g/dl (12.0-16.0); IMMATURE GRANULOCYTE % (AUTO) 0.8 % (0.0-5.0); LYMPHOCYTES # (AUTO) 2.8 K/uL (0.60-3.4); LYMPHOCYTES % (AUTO) 21.4 (10.0-50.0); MEAN CORPUSCULAR HEMOGLOBIN 31.9 pg (27.0-31.0); MEAN CORPUSCULAR HGB CONC 37.9 (31.8-35.4); MEAN CORPUSCULAR VOLUME 84.3 fl (81.0-99.0); MONOCYTES # (AUTO) 1.2 K/uL (0.4-2.0); NEUTROPHILS % (AUTO) 68.2; PLATELET COUNT 301 10^3/uL (140-440); RED BLOOD COUNT 4.89 10^6/ul (4.20-5.40); WHITE BLOOD COUNT 13.18 K/ul (4.6-10.2)
[2017-02-03 06:17] LABS: ALBUMIN 3.6 g/dL (3.4-5.0); ALBUMIN/GLOBULIN RATIO 0.95; ANION GAP 19.8; BILIRUBIN,TOTAL 0.47 mg/dL (0.00-1.20); BUN/CREATININE RATIO 16.12; CALCIUM 10.5 mg/dL (8.2-10.2); CREATININE 0.93 mg/dL (0.60-1.30); POTASSIUM 3.8 mmol/L (3.5-5.10); TOTAL PROTEIN 7.4 g/dL (6.4-8.2)
[2017-02-03 06:25] LABS: ABG PCO2 52.2 mmHg (35-45); ABG PH 7.337 (7.35-7.45)
[2017-02-03 06:26] LABS: ABG BASE EXCESS 2 (-2.0-2.0); ABG HCO3 28 (22.0-26.0); ABG TCO2 30 (22.0-28.0)
[2017-02-03] MEDS ORDERED: SODIUM CHLORIDE 1,000 ML IV STA (06:27)
--- NOTE | 2017-02-03 06:32 | ED.PDOC ---
General ED Provider: Dr. QIAN LEDESMA-ER Chief Complaint: Cough Stated Complaint: jake been coughing--was seen but didnt have the money for meds Time Seen by Physician: 05:40 Mode of Arrival: Ambulance Information Source: Patient Exam Limitations: No limitations Primary Care Provider: HANNY NORTON Nursing and Triage Documentation Reviewed and Agree: Yes Respiratory Complaint Exam - Shortness of Air Complaint/Exam Onset/Duration: 3 days Symptoms Are: Still present Timing: Intermittent Initial Severity: Mild Current Severity: Mild Aggravating: Reports: None, URI Alleviating: Reports: Bronchodilators Associated Signs and Symptoms: Reports: Cough, Wheezing, Chest pain with cough. Denies: Chest pain, Fever, Chills, Diaphoresis, Nasal congestion, Dizziness, Calf pain, Calf swelling, Edema, Rapid breathing, Labored breathing, Decreased intake Related History: Reports: Similar episode History of Healthcare-Acquired Pneumonia: No Pseudomonas Risk Factors: Reports: None Home Oxygen Use: No Recent Stress Test: No Recent Echo/LV Function: No Respiratory Distress: Mild Stridor Present: No Tracheal Deviation: No Subcutaneous Emphysema: No Accessory Muscle Use: No Retractions: Not Present Diminished Breath Sounds: No Prolonged Expiratory Phase: No Unable to Speak Full Sentences: No Fatigue: No Leg Swelling: No Percy's Sign Present: No Grunting Respirations: No Kussmaul Respirations: No Differential Diagnoses: Asthma, COPD Exacerbation, Pneumonia Quality Indicator For Non-Traumatic Chest Pain/Syncope: EKG Performed Review of Systems - Review Of Systems Constitutional: Reports: No symptoms Eyes: Reports: No symptoms Ears, Nose, Mouth, Throat: Reports: No symptoms Respiratory: Reports: Cough Cardiac: Reports: No symptoms GI: Reports: No symptoms : Reports: No symptoms Musculoskeletal: Reports: No symptoms Skin: Reports: No symptoms Neurological: Reports: No symptoms Endocrine: Reports: No symptoms Hematologic/Lymphatic: Reports: No symptoms All Other Systems: Reviewed and Negative Past Medical History - Past Medical History Previously Healthy: No Endocrine: Reports: DM 2 Cardiovascular: Reports: None Respiratory: Reports: COPD Hematological: Reports: None Gastrointestinal: Reports: None Genitourinary: Reports: None Neuro/Psych: Reports: Anxiety, Depression, PTSD Musculoskeletal: Reports: Arthritis, Joint Pain Cancer: Reports: None Last Menstrual Period: PT HAS HAD A HYSTERECTOMY Other Pertinent Past Medical History: polinoidal cyst x2, bladder tuck x2, bunion surg x2 - Surgical History General Surgical History: Reports: Hysterectomy (hysterectomy, D and C x2), Cholecystectomy, Orthopedic (Rt gr toe surgery, tarsal tunnel decompression x2) , Other (polinoidal cyst x2, bladder tuck x2, bunion surg x2,, oral surg) - Family History Family History: Reports: Unknown - Social History Smoking Status: Current some day smoker Hx Substance Use: No Alcohol Screening: None Lives: With family - Immunizations Tetanus Shot up to Date: Yes Physical Exam - Physical Exam Appearance: Well-appearing, No pain distress, Well-nourished Eyes: RAMBO, EOMI, Conjunctiva clear ENT: Ears normal, Nose normal, Oropharynx normal Neck: Supple Respiratory: Airway patent, Breath sounds diminished, Rhonchi, Wheezes Cardiovascular: RRR GI/: Soft, Nontender, No masses, Bowel sounds normal, No Organomegaly Musculoskeletal: Normal strength Skin: Warm Neurological: Sensation intact Psychiatric: Affect appropriate, Mood appropriate, Anxious Interpretation - Radiology Interpretation Radiology Interpretation By: ED Physician Radiology Results: Negative Exam Interpreted: CXR Re-Evaluation - Re-Evaluation Time of Re-Evaluation: 06:43 Status: Improved Vital Signs Stable: Yes Pain Level: 0 Appearance: NAD Lungs: Clear Skin: Warm and Dry Neuro: Alert and Oriented X3 CV: RRR Physician Notification - Case Discussed Physician Notified: dr hitchcock Time of Notification: 06:43 Critical Care Note - Critical Care Note Total Time (mins): 30 Course - Course Hematology/Chemistry: 02/03/17 05:57 02/03/17 05:57 Orders, Labs, Meds: Lab Review 02/03/17 02/03/17 02/03/17 05:46 05:57 05:57 WBC 13.18 H RBC 4.89 Hgb 15.6 Hct 41.2 MCV 84.3 MCH 31.9 H MCHC 37.9 H RDW Coeff of Ian 11.7 Plt Count 301 Immature Gran % (Auto) 0.8 Neut % (Auto) 68.2 Lymph % (Auto) 21.4 Lawrence % (Auto) 9.0 Eos % (Auto) 0.2 Baso % (Auto) 0.4 Immature Gran # (Auto) 0.1 Neut # 9.0 H Lymph # 2.8 Lawrence # 1.2 Eos # 0.0 Baso # 0.1 Puncture Site Lb O2 Saturation 82.0 L ABG pH 7.337 L ABG pCO2 52.2 H ABG pO2 50.0 L* ABG HCO3 28 H ABG Total CO2 30 H ABG Base Excess 2 Jose De Jesus Test + FiO2 % 21.0 Sodium 136 Potassium 3.8 Chloride 95 L Carbon Dioxide 25 Anion Gap 19.8 BUN 15 Creatinine 0.93 Estimated GFR (MDRD) 65.00 BUN/Creatinine Ratio 16.12 Glucose 462 H Calcium 10.5 H Total Bilirubin 0.47 AST 14 L ALT 26 Alkaline Phosphatase 121 H B-Natriuretic Peptide Total Protein 7.4 Albumin 3.6 Globulin 3.8 Albumin/Globulin Ratio 0.95 02/03/17 05:57 WBC RBC Hgb Hct MCV MCH MCHC RDW Coeff of Ian Plt Count Immature Gran % (Auto) Neut % (Auto) Lymph % (Auto) Lawrence % (Auto) Eos % (Auto) Baso % (Auto) Immature Gran # (Auto) Neut # Lymph # Lawrence # Eos # Baso # Puncture Site O2 Saturation ABG pH ABG pCO2 ABG pO2 ABG HCO3 ABG Total CO2 ABG Base Excess Jose De Jesus Test FiO2 % Sodium Potassium Chloride Carbon Dioxide Anion Gap BUN Creatinine Estimated GFR (MDRD) BUN/Creatinine Ratio Glucose Calcium Total Bilirubin AST ALT Alkaline Phosphatase B-Natriuretic Peptide 82 Total Protein Albumin Globulin Albumin/Globulin Ratio Orders Category Date Time Status ABG DRAW REQUEST Stat CARDIO 02/03/17 05:47 Ordered NEBULIZER TREATMENT Stat CARDIO 02/03/17 05:48 Ordered IV ACCESS ONCE CARE 02/03/17 06:27 Active IV [ED IV/MEDIPORT/POWERPORT] .ONCE EMERGENCY 02/03/17 06:38 Active ABG Stat LAB 02/03/17 05:46 Completed BLOOD CULTURE Stat LAB 02/03/17 06:39 Ordered BNP [B-TYPE NATRIURETIC PEPTIDE] Stat LAB 02/03/17 05:57 Completed CBC W/ AUTO DIFF Stat LAB 02/03/17 05:57 Completed COMPREHENSIVE METABOLIC PANEL Stat LAB 02/03/17 05:57 Completed D-DIMER Stat LAB 02/03/17 06:00 Stop Req 0.9 % Sodium Chloride [Saline Flush] MEDS 02/03/17 06:38 Ordered 1 syr IVF PRN PRN Ceftriaxone Sodium [Rocephin] 1 gm MEDS 02/03/17 06:42 Active 0.9 % Sodium Chloride [Sodium Chloride] 50 ml IV ONCE Dexamethasone 4 mg/ml Inj [Decadron 4 mg/ml Sdv] MEDS 02/03/17 05:48 Discontinued 8 mg IM ONCE STA Ipratropium/Albuterol Neb [Duoneb] MEDS 02/03/17 05:47 Discontinued 1 vial NEB ONCE STA Levalbuterol HCl [Xopenex 1.25 mg] MEDS 02/03/17 05:48 Discontinued 1 vial NEB ONCE STA Sodium Chloride 0.9% [Sodium Chloride] 1,000 ml MEDS 02/03/17 06:27 Active IV 100 mls/hr CXR [CHEST, 1V AP ONLY] Stat RADS 02/03/17 06:29 Taken CXR [CHEST, 2 VIEWS PA & LAT] Stat RADS 02/03/17 05:47 Stop Req Medications Generic Name Dose Route Start Last Admin Trade Name Freq PRN Reason Stop Dose Admin Sodium Chloride 1,000 mls @ 100 mls/hr 02/03/17 06:27 Sodium Chloride IV 02/03/17 16:26 .Q10H STA Ceftriaxone Sodium 1 gm/ 50 mls @ 75 mls/hr 02/03/17 06:42 Sodium Chloride IV 02/03/17 07:21 ONCE STA Sodium Chloride 1 syr 02/03/17 06:38 Saline Flush IVF PRN PRN To flush IV Discontinued Medications Generic Name Dose Route Start Last Admin Trade Name Freq PRN Reason Stop Dose Admin Albuterol/Ipratropium 1 vial 02/03/17 05:47 Duoneb NEB 02/03/17 05:48 ONCE STA Dexamethasone Sodium Phosphate 8 mg 02/03/17 05:48 02/03/17 05:57 Decadron 4 Mg/Ml Sdv IM 02/03/17 05:49 8 mg ONCE STA Administration Levalbuterol HCl 1 vial 02/03/17 05:48 Xopenex 1.25 Mg NEB 02/03/17 05:49 ONCE STA Vital Signs: Temp Pulse Resp BP Pulse Ox 02/03/17 05:36 97.9 F 114 H 36 H 169/89 H 94 L Departure - Departure Time of Disposition: 06:43 Disposition: ADMITTED INPATIENT Discharge Problem: Acute respiratory failure Qualifiers: Respiratory failure complication: hypoxia Qualified Code(s): J96.01 - Acute respiratory failure with hypoxia Instructions: COPD (Chronic Obstructive Pulmonary Disease) (ED) Condition: Fair Pt referred to PMD for follow-up: Yes Allergies/Adverse Reactions: Allergies divalproex sodium Allergy (Severe, Verified 02/03/17 05:43) Unknown oxcarbazepine [From Trileptal] Allergy (Severe, Verified 02/03/17 05:43) made m annette kiwi Allergy (Intermediate, Verified 02/03/17 05:43) Vomiting acetaminophen [From Lortab] Adverse Reaction (Verified 02/03/17 05:43) aspirin [From Percodan] Adverse Reaction (Verified 02/03/17 05:43) codeine Adverse Reaction (Verified 02/03/17 05:43) hydrocodone bitartrate [From Lortab] Adverse Reaction (Verified 02/03/17 05:43) ibuprofen Adverse Reaction (Verified 02/03/17 05:43) ketorolac tromethamine [From Toradol] Adverse Reaction (Verified 02/03/17 05:43) metformin HCl [From Glucophage] Adverse Reaction (Verified 02/03/17 05:43) morphine Adverse Reaction (Verified 02/03/17 05:43) oxycodone HCl [From Percocet] Adverse Reaction (Verified 02/03/17 05:43) oxycodone terephthalate [From Percodan] Adverse Reaction (Verified 02/03/17 05: 43) peach [Bingham] Adverse Reaction (Verified 02/03/17 05:43) propoxyphene napsylate [From Darvocet-N 100] Adverse Reaction (Verified 05:43) risperidone [From Risperdal] Adverse Reaction (Verified 02/03/17 05:43) elisa Adverse Reaction (Verified 02/03/17 05:43) tomato [Tomato] Adverse Reaction (Verified 02/03/17 05:43) ziprasidone HCl [From Geodon] Adverse Reaction (Verified 02/03/17 05:43) ziprasidone mesylate [From Geodon] Adverse Reaction (Verified 02/03/17 05:43) peaches Adverse Reaction (Uncoded 02/03/17 05:43) Home Medications: Ambulatory Orders Fluoxetine HCl [Prozac] 40 mg PO DAILY 02/20/14 Pantoprazole Sodium [Protonix] 40 mg PO DAILY #30 tablet. 03/31/16 Tramadol HCl 50 mg PO BID #14 tablet 12/21/16 Aspirin/Acetaminophen/Caffeine [Excedrin Migraine Caplet] 2 tab PO Q4-6H PRN Diphenhydram/PE/Dm/Acetamin/GG [Daytime-Cold Rhyvcyeha-Xna-Xgp] 1 tab PO BID PRN 02/02/17 Methylprednisolone [Medrol Dosepak] 4 mg PO DIRECTED #1 pkg 02/02/17 Disposition Discussed With: Patient
[2017-02-03] MEDS ORDERED: ROCEPHIN 1 GM in SODIUM CHLORIDE 50 ML IV STA (06:42)
--- NOTE | 2017-02-03 06:48 | DI ---
EXAM: Chest, one-view HISTORY: Chest Pain FINDINGS: Cardiac and mediastinal contours are normal. Pulmonary vasculature is normal. Question va myrna interstitial coarsening of the medial right lung base versus artifact. The lungs are clear other batres. Bony thorax is unremarkable. IMPRESSION: Questionable interstitial prominence of the medial right lung base versus artifact. Non portable PA and lateral projection would be useful. Negative exam otherwise.
[2017-02-03] MEDS ORDERED: ROCEPHIN ONE (06:51)
[2017-02-03] MEDS ORDERED: SODIUM CHLORIDE 1,000 ML IV SCH (07:00)
[2017-02-03 08:51] VITALS: BMI 24.1
[2017-02-03] MEDS ORDERED: NON-FORMULARY MEDICATION (Fluoxetine Hcl [Prozac] 40 MG) PO SCH (09:00)
[2017-02-03] MEDS: LOVENOX SUBCUT SCH (09:18)
[2017-02-03] MEDS: ULTRAM PO SCH ×2 (09:19→20:35)
[2017-02-03] MEDS: PROZAC PO SCH (09:19)
[2017-02-03] MEDS: ZITHROMAX PO SCH (09:20)
[2017-02-03] MEDS: PROTONIX PO SCH (09:20)
[2017-02-03] MEDS: DUONEB NEB SCH ×4 (10:21→21:14)
[2017-02-03] MEDS: HUMULIN R SUBCUT PRN ×3 (12:09→22:42)
[2017-02-03] MEDS: DECADRON 4 MG/ML SDV IVP SCH ×3 (13:15→23:19)
[2017-02-03] MEDS: DESYREL PO SCH (20:33)
[2017-02-03] MEDS ORDERED: LANTUS SUBCUT SCH (22:15)
[2017-02-03] MEDS: LAMOTRIGINE 250 MG PO SCH ×2 (22:43→22:46)
[2017-02-04] MEDS: DUONEB NEB SCH ×6 (01:53→22:00)
[2017-02-04 05:23] LABS: BASOPHILS % (AUTO) 0.3 % (0.0-3.0); HEMATOCRIT 37.1 % (37.0-47.0); HEMOGLOBIN 13.7 g/dl (12.0-16.0); IMMATURE GRANULOCYTE % (AUTO) 1.1 % (0.0-5.0); LYMPHOCYTES % (AUTO) 8.6 (10.0-50.0); MEAN CORPUSCULAR HEMOGLOBIN 31.9 pg (27.0-31.0); MEAN CORPUSCULAR HGB CONC 36.9 (31.8-35.4); MEAN CORPUSCULAR VOLUME 86.5 fl (81.0-99.0); MONOCYTES # (AUTO) 0.7 K/uL (0.4-2.0); MONOCYTES % (AUTO) 5.9 (0-10); NEUTROPHILS # (AUTO) 9.6 K/ul (2.0-6.9); NEUTROPHILS % (AUTO) 84.1; PLATELET COUNT 232 10^3/uL (140-440); RED BLOOD COUNT 4.29 10^6/ul (4.20-5.40); WHITE BLOOD COUNT 11.44 K/ul (4.6-10.2)
[2017-02-04] MEDS: PROTONIX PO SCH (05:37)
[2017-02-04] MEDS: DECADRON 4 MG/ML SDV IVP SCH ×4 (05:43→23:25)
[2017-02-04 05:56] LABS: ALBUMIN 3.1 g/dL (3.4-5.0); ALBUMIN/GLOBULIN RATIO 0.91; ANION GAP 15.9; BILIRUBIN,TOTAL 0.3 mg/dL (0.00-1.20); BUN/CREATININE RATIO 26.31; CALCIUM 9.7 mg/dL (8.2-10.2); CREATININE 0.76 mg/dL (0.60-1.30); POTASSIUM 3.9 mmol/L (3.5-5.10); TOTAL PROTEIN 6.5 g/dL (6.4-8.2)
[2017-02-04] MEDS: HUMULIN R SUBCUT PRN ×4 (06:13→20:28)
[2017-02-04] MEDS: ZITHROMAX PO SCH (08:04)
[2017-02-04] MEDS: LOVENOX SUBCUT SCH (08:04)
[2017-02-04] MEDS: PROZAC PO SCH (08:04)
[2017-02-04] MEDS: ROCEPHIN 1 GM in SODIUM CHLORIDE 50 ML IV SCH (08:05)
[2017-02-04] MEDS: ULTRAM PO SCH ×2 (08:53→20:04)
[2017-02-04] MEDS ORDERED: LANTUS SUBCUT SCH (10:18)
[2017-02-04] MEDS: MUCINEX PO SCH ×2 (12:00→20:05)
[2017-02-04] MEDS: DESYREL PO SCH (20:05)
[2017-02-04] MEDS: LAMOTRIGINE 200 MG PO SCH (20:07)
[2017-02-04] MEDS: TESSALON PERLES PO PRN (23:24)
[2017-02-05] MEDS: DUONEB NEB SCH ×6 (02:00→22:40)
[2017-02-05] MEDS: DECADRON 4 MG/ML SDV IVP SCH ×4 (05:19→17:45)
[2017-02-05 05:25] LABS: BASOPHILS # (AUTO) 0.1 K/uL (0-0.2); BASOPHILS % (AUTO) 0.6 % (0.0-3.0); HEMATOCRIT 38.6 % (37.0-47.0); HEMOGLOBIN 13.8 g/dl (12.0-16.0); IMMATURE GRANULOCYTE % (AUTO) 4.4 % (0.0-5.0); LYMPHOCYTES # (AUTO) 0.9 K/uL (0.60-3.4); LYMPHOCYTES % (AUTO) 7.2 (10.0-50.0); MEAN CORPUSCULAR HEMOGLOBIN 31.8 pg (27.0-31.0); MEAN CORPUSCULAR HGB CONC 35.8 (31.8-35.4); MEAN CORPUSCULAR VOLUME 88.9 fl (81.0-99.0); MONOCYTES # (AUTO) 0.6 K/uL (0.4-2.0); MONOCYTES % (AUTO) 5.2 (0-10); NEUTROPHILS # (AUTO) 9.8 K/ul (2.0-6.9); NEUTROPHILS % (AUTO) 82.6; PLATELET COUNT 223 10^3/uL (140-440); RED BLOOD COUNT 4.34 10^6/ul (4.20-5.40); WHITE BLOOD COUNT 11.89 K/ul (4.6-10.2)
[2017-02-05] MEDS: PROTONIX PO SCH (05:42)
[2017-02-05 05:43] LABS: ALBUMIN/GLOBULIN RATIO 0.94; ANION GAP 14.3; BILIRUBIN,TOTAL 0.26 mg/dL (0.00-1.20); BUN/CREATININE RATIO 30.12; CALCIUM 9.3 mg/dL (8.2-10.2); CREATININE 0.83 mg/dL (0.60-1.30); POTASSIUM 4.3 mmol/L (3.5-5.10); TOTAL PROTEIN 6.2 g/dL (6.4-8.2)
[2017-02-05] MEDS: HUMULIN R SUBCUT PRN ×4 (05:51→21:29)
[2017-02-05] MEDS: ROCEPHIN 1 GM in SODIUM CHLORIDE 50 ML IV SCH (08:46)
[2017-02-05] MEDS: PROZAC PO SCH (08:47)
[2017-02-05] MEDS: ZITHROMAX PO SCH (08:47)
[2017-02-05] MEDS: MUCINEX PO SCH ×2 (08:47→21:13)
[2017-02-05] MEDS: LOVENOX SUBCUT SCH (08:47)
[2017-02-05] MEDS: ULTRAM PO SCH ×2 (08:48→21:15)
[2017-02-05] MEDS: NICODERM 21 MG TD SCH (11:00)
--- NOTE | 2017-02-05 11:17 | CT ---
Exam: CT of the chest without intravenous contrast. Comparison: Chest x-ray performed 02/03/2017. Reason for exam: Cough, shortness of air. FINDINGS: Image interpretation is limited by the lack of intravenous contrast administration. No pneumothorax, pleural effusion, or focal consolidation. The heart is not enlarged. The aorta is normal in course and caliber. There is a [id number] amount of retained food products within the esophagus. There is apparent thickening of the proximal gastric wall. The gallbladder has been removed. Punctate density is seen in the right renal collecting system. There is atherosclerotic disease of t he aorta and distal arterial vasculature. There is no suspicious appearing osteoblastic or osteolytic lesion. Impression: 1. No pneumothorax, pleural effusion, or focal consolidation. 2. There is a large amount of heterogeneous appearing fluid within the esophagus and proximal stomac h. Imaging findings are concerning for severe reflux. 3. Proximal gastric wall thickening may be related to non distension or represent gastritis or other gastric etiology. If clinical concern exists, direct visualization with endoscopy may be performed. 4. Likely nonobstructive right-sided nephrolithiasis. Report faxed at [phone] hours on 02/05/2017
[2017-02-05] MEDS: LANTUS SUBCUT SCH (21:12)
[2017-02-05] MEDS: LAMOTRIGINE 200 MG PO SCH (21:13)
[2017-02-05] MEDS: DESYREL PO SCH (21:13)
[2017-02-05] MEDS: TESSALON PERLES PO PRN (21:30)
[2017-02-06] MEDS: DUONEB NEB SCH ×6 (00:58→22:36)
[2017-02-06] MEDS: DECADRON 4 MG/ML SDV IVP SCH ×4 (01:11→21:09)
[2017-02-06 05:11] LABS: HEMATOCRIT 40.1 % (37.0-47.0); HEMOGLOBIN 14.4 g/dl (12.0-16.0); MEAN CORPUSCULAR HEMOGLOBIN 31.9 pg (27.0-31.0); MEAN CORPUSCULAR HGB CONC 35.9 (31.8-35.4); MEAN CORPUSCULAR VOLUME 88.9 fl (81.0-99.0); PLATELET COUNT 226 10^3/uL (140-440); RED BLOOD COUNT 4.51 10^6/ul (4.20-5.40); WHITE BLOOD COUNT 11.62 K/ul (4.6-10.2)
[2017-02-06 05:21] LABS: ANISOCYTOSIS NOT PRESENT (NOT PRESENT)
[2017-02-06 05:35] LABS: ANION GAP 13.1; BILIRUBIN,TOTAL 0.31 mg/dL (0.00-1.20); BUN/CREATININE RATIO 28.16; CALCIUM 9.5 mg/dL (8.2-10.2); CREATININE 0.71 mg/dL (0.60-1.30); POTASSIUM 4.1 mmol/L (3.5-5.10)
[2017-02-06] MEDS: PROTONIX PO SCH ×3 (05:35→17:19)
[2017-02-06] MEDS: HUMULIN R SUBCUT PRN ×4 (06:16→21:11)
[2017-02-06] MEDS ORDERED: ROBITUSSIN SUGAR-FREE PO PRN (08:33)
[2017-02-06] MEDS: ZITHROMAX PO SCH (08:55)
[2017-02-06] MEDS: PROZAC PO SCH (08:55)
[2017-02-06] MEDS: ROCEPHIN 1 GM in SODIUM CHLORIDE 50 ML IV SCH (08:55)
[2017-02-06] MEDS: MUCINEX PO SCH ×2 (08:55→21:15)
[2017-02-06] MEDS: ULTRAM PO SCH ×2 (08:55→21:14)
[2017-02-06] MEDS: LOVENOX SUBCUT SCH (10:29)
[2017-02-06] MEDS: NICODERM 21 MG TD SCH (10:30)
[2017-02-06 10:57] LABS: ABG PCO2 41.5 mmHg (35-45); ABG PH 7.377 (7.35-7.45)
[2017-02-06 10:58] LABS: ABG BASE EXCESS -1 (-2.0-2.0); ABG HCO3 24.4 (22.0-26.0); ABG TCO2 26 (22.0-28.0)
[2017-02-06] MEDS: LANTUS SUBCUT SCH (21:10)
[2017-02-06] MEDS: DESYREL PO SCH (21:12)
[2017-02-06] MEDS: OMNICEF PO SCH (21:13)
[2017-02-06] MEDS: LAMOTRIGINE 200 MG PO SCH ×2 (21:16→21:19)
[2017-02-06] MEDS: TESSALON PERLES PO SCH (21:17)
[2017-02-07] MEDS: DUONEB NEB SCH ×3 (01:14→10:30)
[2017-02-07] MEDS: PROTONIX PO SCH (05:53)
[2017-02-07 06:35] LABS: HEMATOCRIT 45.7 % (37.0-47.0); HEMOGLOBIN 16.1 g/dl (12.0-16.0); MEAN CORPUSCULAR HEMOGLOBIN 31.7 pg (27.0-31.0); MEAN CORPUSCULAR HGB CONC 35.2 (31.8-35.4); PLATELET COUNT 243 10^3/uL (140-440); RED BLOOD COUNT 5.08 10^6/ul (4.20-5.40); WHITE BLOOD COUNT 10.34 K/ul (4.6-10.2)
[2017-02-07] MEDS: HUMULIN R SUBCUT PRN ×2 (06:39→11:52)
[2017-02-07 06:46] LABS: ALBUMIN 3.4 g/dL (3.4-5.0); ALBUMIN/GLOBULIN RATIO 0.97; ANION GAP 16.9; BILIRUBIN,TOTAL 0.49 mg/dL (0.00-1.20); BUN/CREATININE RATIO 30.86; CALCIUM 9.7 mg/dL (8.2-10.2); CREATININE 0.81 mg/dL (0.60-1.30); POTASSIUM 3.9 mmol/L (3.5-5.10); TOTAL PROTEIN 6.9 g/dL (6.4-8.2)
[2017-02-07 06:51] LABS: ANISOCYTOSIS NOT PRESENT (NOT PRESENT)
--- NOTE | 2017-02-07 09:54 | PN ---
DATE OF SERVICE: 02/04/17 SUBJECTIVE: The patient was admitted with pneumonia and COPD exacerbation, acute respiratory failure. The patient is still wheezing, coughing and congested and getting lots of phlegm. REVIEW OF SYSTEMS: CONSTITUTIONAL: No fever, no chills. HEENT: Normal. ENDOCRINE: No weight gain, no weight loss. CVS: No angina symptoms. No CHF symptoms. No palpitations. No atypical chest pain for CAD. No shortness of breath. No PND, no orthopnea. RESPIRATORY: No cough, no hemoptysis. GI: No nausea, no vomiting. No abdominal pain. : No hematuria. No polyuria. MUSCULOSKELETAL:. No joint swelling. PSYCHIATRIC: Not anxious. No depression. No suicidal thoughts. No homicidal thoughts. SKIN: Intact. No rash. PHYSICAL EXAMINATION: V/S: Blood pressure 129/70, respiratory rate 18, heart rate 100 with saturation 91% on 2 liters and temperature 97.8. HEENT: Normocephalic, atraumatic. Mucosa dry. NECK: Supple. No JVD, no carotid bruit. No lymphadenopathy. LUNGS: Decreased breath with basilar crackles. Expiratory wheeze is present. No rales or rhonchi. HEART: S1, S2 normal. No S3. No murmur, gallop or regurgitation. ABDOMEN: Soft, nontender. Bowel sounds active. No rigidity. No rebound or guarding. No CVA tenderness. EXTREMITIES: No clubbing, cyanosis or pedal edema. MUSCULOSKELETAL: No joint swelling. NEUROLOGIC: Awake, alert, oriented times three. No focal deficit. LYMPHATIC: No lymph nodes palpable. SKIN: Intact. LABS: WBC 11.44, hgb 13.7, hct 37.1, plt count 232, sodium 137, potassium 3.9, chloride 98, bicarb 27, BUN 20, creatinine 0.765, glucose 393. ASSESSMENT: 1. COPD exacerbation secondary to the community acquired pneumonia 2. Diabetes, uncontrolled 3. History of Hypertension 4. Dyslipidemia 5. COPD 6. Depression 7. Anxiety 8. Bipolar PLAN: 1. Increase the Lantus to 20 units from 15 units 2. Accu-checks with the coverage 3. Rocephin and Azithromycin 4. DUO NEBS 5. Decadron 4mg Q 6 hours 6. Lovenox for the DVT prophylaxis 7. Will get CT of the chest in the morning TIME SPENT: More than 35 minutes MTDD
[2017-02-07] MEDS: DECADRON 4 MG/ML SDV IVP SCH (10:06)
[2017-02-07] MEDS: NICODERM 21 MG TD SCH (10:07)
[2017-02-07] MEDS: LOVENOX SUBCUT SCH (10:07)
[2017-02-07] MEDS: MUCINEX PO SCH (10:09)
[2017-02-07] MEDS: OMNICEF PO SCH (10:09)
[2017-02-07] MEDS: ZITHROMAX PO SCH (10:09)
[2017-02-07] MEDS: PROZAC PO SCH (10:09)
[2017-02-07] MEDS: TESSALON PERLES PO SCH (10:09)
[2017-02-07] MEDS: ULTRAM PO SCH (10:10)
[2017-02-07 10:33] VITALS: BP 136/85; TEMP 97.3
--- NOTE | 2017-02-07 11:02 | HP ---
DATE OF SERVICE: 02/03/17 CHIEF COMPLAINT: Coughing and shortness of breath. HISTORY OF PRESENT ILLNESS: This is a 46 year old female with a history of diabetes and hypertension came to the emergency room with cough and congestion for 6 days and can not quit coughing. The patient states that she is burning productive cough light yellow to clear green. Has been having yellow crusty eyes and runny nose and not been feeling good. The patient came to the emergency room, coughing with the congestion. Blood pressure 169/89, respiratory rate 36. Dr. Barber saw the patient and labs showed the ABG pH 7.337, pCO2 52.2, pO2 50, BNP 82, glucose 462. Chest x-ray done showing questionable interstitial prominence of the medial right lung base versus artifact. No portable PA and lateral projection would be useful. Negative exam otherwise. At that time the patient is admitted to the hospital with COPD exacerbation, respiratory failure, uncontrolled diabetes. REVIEW OF SYSTEMS: CONSTITUTIONAL: Fever and chills. Weakness and tiredness. HEENT: Normal. ENDOCRINE: No weight gain; no weight loss. CVS: No chest pain. No PND, no orthopnea. Shortness of breath. No PND, no orthopnea. RESPIRATORY: Cough and congestion. No hemoptysis. GI: No nausea, no vomiting. No abdominal pain. No melena. : No hematuria. No polyuria. Elevated sugars. MUSCULOSKELETAL: No joint swelling. PSYCHIATRIC: Not anxious. No depression. No suicidal thoughts. No homicidal thoughts. SKIN: Intact, no open lesions. PAST MEDICAL HISTORY: COPD Asthmatic bronchitis GERD Bipolar Depression Anxiety Nicotine use Diabetes, poorly controlled PAST SURGICAL HISTORY: Total hysterectomy Stretched esophagus Dental surgeries Oophorectomy Salpingectomy PERSONAL HISTORY: The patient does smoke one pack per day, no alcohol and no drugs. Family History is significant for diabetes and heart problems. MEDICATIONS: Prozac Protonix Lamictal Trazodone Tramadol Excedrin Migraine ALLERGIES: Divalproex Oxcarbazepine Tylenol Aspirin Codeine PHYSICAL EXAMINATION: GENERAL: Sick looking lady sitting in the bed and not in any distress. V/S: Blood pressure 169/89, respiratory rate 36, heart rate 144 with saturation 94% on 2 liter and temperature 97.9. HEENT: Atraumatic, normocephalic. No scleral icterus. Mucosa dry. Sinus congestion is seen. NECK: Supple. No JVD, no bruit. No lymphadenopathy. No thyromegaly. HEART: S1, S2 normal. No murmur. No cyanosis or clubbing. No ascites. Sinus tachycardia is seen. LUNGS: Decreased breath sounds with basilar crackles, defused bilateral expiratory wheeze. No rales or rhonchi. ABDOMEN: Soft, nontender. Bowel sounds are active. No CVA tenderness. No rigidity or guarding. EXTREMITIES: No cyanosis, clubbing or pedal edema. MUSCULOSKELETAL: Normal joints, no swelling. NEUROLOGIC: The patient is SKIN: Intact; no open lesions. LYMPHATIC: No lymph nodes palpable. LABS: Sodium 136, potassium 3.8, chloride 95, bicarb 25, BUN 15, creatinine 0.93, glucose 462, WBC 13.18, hgb 15.6, hct 41.2, plt count 301. ASSESSMENT: 1. COPD exacerbation secondary to the bronchitis 2. Uncontrolled diabetes 3. Hypertension 4. Dyslipidemia 5. Elevated white count 6. Nicotine use 7. Cholecystectomy 8. Bipolar 9. Depression 10.Anxiety PLAN: 1. Admit patient to the regular floor 2. CBC and CMP today and daily 3. Cardiac enzymes and Troponin 4. IV fluids 5. Diet:L Diabetic diet 6. Accu-checks with coverage 7. Azithromycin 8. Rocephin 1 gram daily 9. Decadron 4mg Q 6 hours 10.Lovenox for the DVT prophylaxis 11. DUO NEBS 12. IV fluids at 75ml per hour TIME SPENT: MORE THAN 70 minutes for the admission. [facility]
--- NOTE | 2017-03-07 13:09 | PN ---
DATE OF SERVICE: 02/05/17 SUBJECTIVE: The patient was admitted with the respiratory failure and pneumonia. Sugars have been high. Will go ahead and order the A1c. No respiratory distress and breathing better. REVIEW OF SYSTEMS: CONSTITUTIONAL: No fever, no chills. HEENT: Normal. ENDOCRINE: No weight gain, no weight loss. CVS: No angina symptoms. No CHF symptoms. No palpitations. No atypical chest pain for CAD. No shortness of breath. No PND, no orthopnea. RESPIRATORY: Cough and congestion, no hemoptysis. GI: No nausea, no vomiting. No abdominal pain. : No hematuria. No polyuria. MUSCULOSKELETAL:. No joint swelling. PSYCHIATRIC: Not anxious. No depression. No suicidal thoughts. No homicidal thoughts. SKIN: Intact. No rash. PHYSICAL EXAMINATION: V/S: Blood pressure 123/79, respiratory rate 20, heart rate 89, temperature 97.7 and saturation 95%. HEENT: Normocephalic, atraumatic. Mucosa dry. Pallor positive. No icterus. NECK: Supple. No JVD, no carotid bruit. No lymphadenopathy. LUNGS: Decreased and basilar crackles. No rales or rhonchi. HEART: S1, S2 normal. No S3. No murmur, gallop or regurgitation. ABDOMEN: Soft, nontender. Bowel sounds active. No rigidity. No rebound or guarding. No CVA tenderness. EXTREMITIES: No clubbing, cyanosis or pedal edema. MUSCULOSKELETAL: No joint swelling. NEUROLOGIC: Awake, alert, oriented times three. No focal deficit. LYMPHATIC: No lymph nodes palpable. SKIN: Intact. LABS: WBC 11.89, hgb 13.8, hct 38.6, plt count 223, sodium 134, potassium 4.3, chloride 98, bicarb 26, BUN 25, creatinine 0.83 and glucose 543. ASSESSMENT: 1. Acute respiratory failure 2. COPD exacerbation secondary to the pneumonia community acquired 3. Diabetes mellitus, uncontrolled 4. Depression 5. Anxiety 6. PTSD 7. Cholecystectomy 8. Hysterectomy 9. Bladder surgery 10.Left foot surgery PLAN: 1. Continue the Decadron ever6 hours 2. Lovenox for the DVT prophylaxis 3. Rocephin 4. Accu-checks with coverage 5. IV fluids 6. Will order HPA1c TIME SPENT: More than 35 minutes MTDD
--- NOTE | 2017-03-07 13:17 | PN ---
DATE OF SERVICE: 02/06/17 SUBJECTIVE: The patient was admitted with the COPD exacerbation and respiratory failure. Her A1c been 11.5, sugars are in 500 range. We changed the insulin. REVIEW OF SYSTEMS: CONSTITUTIONAL: No fever, no chills. HEENT: Normal. ENDOCRINE: No weight gain, no weight loss. CVS: No angina symptoms. No CHF symptoms. No palpitations. No atypical chest pain for CAD. No shortness of breath. No PND, no orthopnea. RESPIRATORY: Cough and congestion, no hemoptysis. GI: No nausea, no vomiting. No abdominal pain. : No hematuria. No polyuria. MUSCULOSKELETAL:. No joint swelling. PSYCHIATRIC: Not anxious. No depression. No suicidal thoughts. No homicidal thoughts. SKIN: Intact. No rash. PHYSICAL EXAMINATION: V/S: Blood pressure 150/84, respiratory rate 20, heart rate 93, temperature 96.6 and saturation 97. HEENT: Normocephalic, atraumatic. Mucosa dry. NECK: Supple. No JVD, no carotid bruit. No lymphadenopathy. LUNGS: Basilar crackles and no wheezing. No rales or rhonchi. HEART: S1, S2 normal. No S3. No murmur, gallop or regurgitation. ABDOMEN: Soft, nontender. Bowel sounds active. No rigidity. No rebound or guarding. No CVA tenderness. EXTREMITIES: No clubbing, cyanosis or pedal edema. MUSCULOSKELETAL: No joint swelling. NEUROLOGIC: Awake, alert, oriented times three. No focal deficit. LYMPHATIC: No lymph nodes palpable. SKIN: Intact. LABS: Sodium 137, potassium 4.1, chloride 100, bicarb 28, BUN 20, creatinine 0.71, glucose 262, WBC 11.62, hgb 14.4, hct 40.1, plt. count 226. ASSESSMENT: 1. Under controlled diabetes with A1c level 11.4 2. Acute respiratory failure 3. COPD exacerbation 4. Diabetes Mellitus 5. Anxiety 6. Depression 7. PTSD 8. Cholecystectomy PLAN: 1. Continue the Lovenox 2. DUO NEBS 3. Rocephin 4. Decrease Decadron to 2 Q 12 hours 5. Change Protonix to PO 6. As patient is still coughing will increase the Tussionex to three times a day scheduled. TIME SPENT: More than 35 minutes MTDD
--- NOTE | 2017-03-07 13:34 | DS ---
DATE OF SERVICE: 02/07/17 FINAL DIAGNOSIS: 1. Acute respiratory failure secondary to bronchitis 2. Hypoxemic respiratory failure 3. Diabetes uncontrolled, A1c 11.5 4. Hypertension 5. Dyslipidemia 6. History of esophageal stricture and dilation 7. Hysterectomy 8. Depression 9. Bipolar 10.Anxiety 11.Continued nicotine use DISCHARGE INSTRUCTIONS: Discharge the patient home. Continue the rest of the home medications. MEDICATIONS AT DISCHARGE: Prozac Lamictal Trazodone Tramadol Aspirin NEW PRESCRIPTIONS: Mucinex 600mg twice a day Robitussin sugar free cough syrup may take two teaspoon three to four times a day NicoDerm patch Prescription Tessalon Perles 300mg twice a day 7 days Prednisone 10mg twice a day for 7 days Atrovent inhaler two puffs three times a day Lantus insulin increase to 25 units at bedtime DIET INSTRUCTIONS: Carbohydrate and low carb diet ACTIVITY: As much as tolerated SMOKING: Counseling for smoking done. DISEASE SPECIFIC EDUCATION: Uncontrolled diabetes Risk of DKA COPD Risk of pneumonia and need for pneumonia vaccination been discussed. HOSPITAL COURSE: Jacqueline Kearns who is a 46 year old female with multiple medical problems came to the emergency room with the worsening shortness of breath, cough and congestion. Initial ABG's showed the pH 7.337, pCO2 52.2, pO2 50. Chest x-ray was negative for pneumonia. Admitted to the hospital with hypoxemic respiratory failure with the COPD exacerbation and bronchitis. The patient was started on the Decadron and Rocephin 1 gram daily. Sugars were high and Levemir was increased to 25 units. A1c was 11.5. Gradually the patient started feeling better and oxygen saturation was improving. Shortness of breath was getting better. The patient continues to go outside and smoke, warned the patient not to do that but despite offering help not to quit smoking she was ready to quit at that time. Eventually the patient was getting better and sugar were 100-300 and the last one was 262. At that time the patient is being discharged home and she will be followed [facility] within one week. TIME SPENT: MORE THAN 55 MINUTES MTDD
== END 2017-02-07 12:59 | disposition home or self-care (01) | DRG 189 ==
LOC: ED 05:33 → MEDSURG A 06:47
PROVIDERS: ADMIT Emergency Medicine; ATTEND Emergency Medicine
DX: J96.01 Acute respiratory failure with hypoxia (principal); J18.9 Pneumonia, unspecified organism; J44.1 Chronic obstructive pulmonary disease with (acute) exacerbation; J44.0 Chronic obstructive pulmonary disease with (acute) lower respiratory infection; R07.9 Chest pain, unspecified; R05 Cough; R06.02 Shortness of breath; E11.65 Type 2 diabetes mellitus with hyperglycemia; I10 Essential (primary) hypertension; E78.5 Hyperlipidemia, unspecified; K22.2 Esophageal obstruction; K22.8 Other specified diseases of esophagus; F41.8 Other specified anxiety disorders; F31.9 Bipolar disorder, unspecified; F17.200 Nicotine dependence, unspecified, uncomplicated; J20.9 Acute bronchitis, unspecified; F43.10 Post-traumatic stress disorder, unspecified; Z79.899 Other long term (current) drug therapy
CPT/HCPCS: 36415; 80053; 82803; 82947; 82962; 83036; 83880; 85007; 85025; 87040; 94640; 96365; 96372; 99284

== ENCOUNTER 2017-03-10 13:24 | Outpatient (CLI) | payer OTHER ==
--- NOTE | 2017-03-10 14:39 | DEXA ---
EXAM: Bone density HISTORY: Postmenopausal patient with history of diabetes, irritable bowel syndrome and smoking COMPARISON: None TECHNIQUE: Digital images of the thoracolumbar spine and the hips were provided and calculation of b one density was obtained. FINDINGS: Digital images demonstrate no compression deformities of the thoracolumbar spine. DEXA scan of the lumbar spine is of good quality. The total BMD equals 1.253 grams per square centimeter. T-score is 0.6 and Z-score of 0.4. DEXA of the hips was performed and of good quality. Total bone marrow density of 0.95 grams per square centimeter. T score is - 0.5 and Z-score of - 0.3. IMPRESSION: Bone density of the hip and lumbar spine demonstrate normal bone density by WHO criteria . FRAX calculation tool demonstrates a 10-year major osteoporotic fracture risk of 2.9% and hip fractur e risk of 0.4% T score greater than -1 is normal T score -1 to -2.5 is osteopenia T score less than - 2.5 is osteoporosis
--- NOTE | 2017-03-10 14:43 | DI ---
EXAM: Chest two views HISTORY: Cough COMPARISON: 02/03/2017 TECHNIQUE: Two views of the chest were performed FINDINGS: The lungs are clear. There is no pleural effusion or pneumothorax. The heart is normal i n size. The mediastinal contour is normal. There are no acute abnormalities of the bones. IMPRESSION: No acute cardiopulmonary process.
== END 2017-03-10 13:25 | disposition home or self-care (01) ==
LOC: RAD 13:24
PROVIDERS: ATTEND Nurse Practitioner Family
DX: Z12.31 Encounter for screening mammogram for malignant neoplasm of breast (principal); Z78.0 Asymptomatic menopausal state; R05 Cough
CPT/HCPCS: 77067

== ENCOUNTER 2017-05-03 09:18 | Emergency (ER) ==
[2017-05-03 09:24] VITALS: BP 129/85; TEMP 96.8; BMI 26.6
--- NOTE | 2017-05-03 09:26 | ED.PDOC ---
General ED Provider: Dr. POLLY CHUN Stated Complaint: ear pain Time Seen by Physician: 09:15 Information Source: Patient, Family Exam Limitations: No limitations Primary Care Provider: HANNY NORTON Nursing and Triage Documentation Reviewed and Agree: Yes Reviewed sepsis parameters & appropriate labs ordered?: Yes (none noted ) System Inflammatory Response Syndrome: Not Applicable Sepsis Protocol: For patient's 13 years and over: Temp is 96.8 and below OR 101 and greater Pulse >90 BPM Resp >20/minute Acutely Altered Mental Status Are patient's symptoms suggestive of a new infection, such as: -Pneumonia -Skin, Soft Tissue -Endocarditis -UTI -Bone, Joint Infection -Implantable Device -Acute Abdominal Infection -Wound Infection -Meningitis -Blood Stream Catheter Infection -Unknown EENT Complaint Exam - Ear Complaint/Exam Onset/Duration: 1 day Symptoms Are: Still present Timing: Intermittent Initial Severity: Moderate Current Severity: Moderate Character: Reports: Dull pain Aggravating: Reports: None Alleviating: Reports: None Associated Signs and Symptoms: Denies: Ear trauma, Ear swelling, Discharge, Fever, Hearing loss, Bleeding, Sore throat, Headache, URI symptoms, Foreign body sensation, Rash, Pain to external ear, Pain to external face Ear Surgical History: None Vesicles to External Pinna: No Vesicles to Tragus: No TMJ Tenderness: None Mastoid Tenderness: None Tragal Tenderness: None External Canal: Normal Tympanic Membrane: Erythema (right) Differential Diagnoses: Otitis Media Review of Systems - Review Of Systems Constitutional: Reports: No symptoms Eyes: Reports: Pain (in the ear) Ears, Nose, Mouth, Throat: Reports: No symptoms Respiratory: Reports: No symptoms Cardiac: Reports: No symptoms GI: Reports: No symptoms : Reports: No symptoms Musculoskeletal: Reports: No symptoms Skin: Reports: No symptoms Neurological: Reports: No symptoms Endocrine: Reports: No symptoms Hematologic/Lymphatic: Reports: No symptoms All Other Systems: Reviewed and Negative Past Medical History - Past Medical History Previously Healthy: No Endocrine: Reports: DM 2 Cardiovascular: Reports: None Respiratory: Reports: COPD Hematological: Reports: None Gastrointestinal: Reports: None Genitourinary: Reports: None Neuro/Psych: Reports: Anxiety, Depression, PTSD Musculoskeletal: Reports: Arthritis, Joint Pain Cancer: Reports: None Other Pertinent Past Medical History: polinoidal cyst x2, bladder tuck x2, bunion surg x2 - Surgical History General Surgical History: Reports: Hysterectomy (hysterectomy, D and C x2), Cholecystectomy, Orthopedic (Rt gr toe surgery, tarsal tunnel decompression x2) , Other (polinoidal cyst x2, bladder tuck x2, bunion surg x2,, oral surg) - Family History Family History: Reports: Unknown - Social History Smoking Status: Current some day smoker Hx Substance Use: No Alcohol Screening: None Physical Exam - Physical Exam Appearance: Well-appearing, No pain distress, Well-nourished Eyes: RAMBO, EOMI, Conjunctiva clear ENT: Erythema (right tm) Respiratory: Airway patent, Breath sounds clear, Breath sounds equal, Respirations nonlabored Cardiovascular: RRR, Pulses normal, No rub, No murmur GI/: Soft, Nontender, No masses, Bowel sounds normal, No Organomegaly Musculoskeletal: Normal strength, ROM intact, No edema, No calf tenderness Skin: Warm, Dry, Normal color Neurological: Sensation intact, Motor intact, Reflexes intact, Cranial nerves intact, Alert, Oriented Psychiatric: Affect appropriate, Mood appropriate Critical Care Note - Critical Care Note Total Time (mins): 0 Departure - Departure Time of Disposition: 09:26 Disposition: HOME SELF-CARE Discharge Problem: Otitis media Qualifiers: Otitis media type: unspecified Chronicity: acute Qualified Code(s): H66.90 - Otitis media, unspecified, unspecified ear Instructions: Ear Infection (ED) Condition: Good Pt referred to PMD for follow-up: Yes Prescriptions: Amoxicillin 500 mg PO Q8HR #21 tablet Neomycin/Polymyxin B/Hc Otic [Cortisporin Otic Susp] 4 drop OT Q8H 5 Days drops.susp Allergies/Adverse Reactions: Allergies divalproex sodium Allergy (Severe, Verified 02/03/17 05:43) Unknown oxcarbazepine [From Trileptal] Allergy (Severe, Verified 02/03/17 05:43) made m justynack kiwi Allergy (Intermediate, Verified 02/03/17 05:43) Vomiting acetaminophen [From Lortab] Adverse Reaction (Verified 02/03/17 05:43) aspirin [From Percodan] Adverse Reaction (Verified 02/03/17 05:43) codeine Adverse Reaction (Verified 02/03/17 05:43) hydrocodone bitartrate [From Lortab] Adverse Reaction (Verified 02/03/17 05:43) ibuprofen Adverse Reaction (Verified 02/03/17 05:43) ketorolac tromethamine [From Toradol] Adverse Reaction (Verified 02/03/17 05:43) metformin HCl [From Glucophage] Adverse Reaction (Verified 02/03/17 05:43) morphine Adverse Reaction (Verified 02/03/17 05:43) oxycodone HCl [From Percocet] Adverse Reaction (Verified 02/03/17 05:43) oxycodone terephthalate [From Percodan] Adverse Reaction (Verified 02/03/17 05: 43) peach [[place]] Adverse Reaction (Verified 02/03/17 05:43) propoxyphene napsylate [From Darvocet-N 100] Adverse Reaction (Verified 05:43) risperidone [From Risperdal] Adverse Reaction (Verified 02/03/17 05:43) elisa Adverse Reaction (Verified 02/03/17 05:43) tomato [Tomato] Adverse Reaction (Verified 02/03/17 05:43) ziprasidone HCl [From Geodon] Adverse Reaction (Verified 02/03/17 05:43) ziprasidone mesylate [From Geodon] Adverse Reaction (Verified 02/03/17 05:43) peaches Adverse Reaction (Uncoded 02/03/17 05:43) Home Medications: Ambulatory Orders Fluoxetine HCl [Prozac] 40 mg PO DAILY 02/20/14 Tramadol HCl 50 mg PO BID #14 tablet 12/21/16 Aspirin/Acetaminophen/Caffeine [Excedrin Migraine Caplet] 2 tab PO Q4-6H PRN Ipratropium [place] [Atrovent Hfa] 12.9 gm IH BID #1 hfa.aer.ad 02/07/17 Amoxicillin 500 mg PO Q8HR #21 tablet 05/03/17 Neomycin/Polymyxin B/Hc Otic [Cortisporin Otic Susp] 4 drop OT Q8H 5 Days drops.susp 05/03/17
== END 2017-05-03 09:29 | disposition home or self-care (01) ==
LOC: ED 09:18
DX: H66.90 Otitis media, unspecified, unspecified ear (principal); F17.210 Nicotine dependence, cigarettes, uncomplicated
CPT/HCPCS: 99282

== ENCOUNTER 2017-06-16 10:17 | Outpatient (CLI) ==
--- NOTE | 2017-06-16 12:46 | MRI ---
EXAM: MRI lumbar spine without IV contrast. DATE: 16 June 2017. HISTORY: Low back pain. TECHNIQUE: Sagittal and axial T1W and T2W sequences of the lumbar spine along with sagittal IR and c oronal T2W sequences were obtained using 1.2 Stacie magnet. No IV contrast. COMPARISON: LS spine series 28 July 2014. MRI L-spine [address] abdomen/pelvis August 11. FINDINGS: There are five vpt-aqu-diwielr lumbar vertebra. No lumbar scoliosis is detected. A 1.5 m m anterior subluxation of L4 relative to L5 is noted. No other subluxation, acute fracture, osseous malignancy, or pars interarticularis defect is demonstrated. Lumbar vertebra are normal in height. Tiny osteophytes are seen at several lumbar vertebra. T2W/T1W dark, IR isointense to slightly bright, eight by 12 mm focus in the S2 body is similar to that July 2014. Chronic Schmorl's nodes are visib le in each level from T12 through L5. Disc desiccation is noted at L2-3 through L5-S1. Lumbar inter vertebral discs are normal in height. No acute sacral fracture or stress reaction is evident. Conus medullaris terminates at L1-2. Visible spinal cord is normal. No retroperitoneal lymphadenopathy, paraspinal mass, or aortic aneurysm is detected. Paraspinal musc ulature is symmetric bilaterally. Right lobe liver is greater than 16.2 cm in length. Visible porti ons of the liver, spleen, right adrenal gland, and kidneys reveal no neoplasm. T2W/T1W intermediate signal focus (7.8 x 8 x 22 mm) is observed in the lateral limb left adrenal gland near the tera. Thi s structure was previously noted at HU = -[address] scan. No bowel obstruction or malignancy is evide nt. Segmental analysis: T12-L1: Normal. L1-2: Normal. L2-3: Small concentric disc bulge and minor facet arthropathy cause mild central canal stenosis and mild bilateral inferior foraminal encroachment. Right L2 nerve root may contact the disc bulge latera l to the foramen. L3-4: Moderate concentric disc bulge, mild bilateral facet arthropathy and mild ligamentum flavum hy pertrophy cause moderate central canal stenosis, mild /moderate right foraminal stenosis, and moderat e left foraminal stenosis. L4-5: Minor anterior subluxation of L5, moderate concentric disc bulge, mild facet arthropathy and m ild ligamentum flavum hypertrophy cause mild/moderate central canal stenosis, mild/moderate narrowing at the right foraminal opening, and moderate narrowing of the left foraminal opening. L5-S1: Small concentric disc bulge, superimposed midline to right paracentral disc protrusion (2 mm AP by 10 mm transverse) and mild facet arthropathy cause mild central canal stenosis, mild right fora mei stenosis, and moderate left foraminal stenosis. IMPRESSIONS: 1. Lumbar spine minor spondylosis, mild facet arthropathy, and multilevel DDD - - similar to July 11. 2. Multilevel central canal stenoses (L2-3: Mild. L3-4: Moderate. L4-5: Mild/moderate. L5-S1: Mil d) 3. Multilevel foraminal stenoses as described. Right L2 nerve root contacts the disc bulge near the foramen and could be a source for pain/radiculopathy 4. T-L-spine small, old Schmorl's nodes. 5. Probable bone island in the S2 body. 6. Left adrenal lesion - likely a adenoma.
== END 2017-06-16 10:18 | disposition home or self-care (01) ==
LOC: RAD 10:17
PROVIDERS: ATTEND Nurse Practitioner Family
DX: M54.5 Low back pain (principal); G89.29 Other chronic pain; M54.40 Lumbago with sciatica, unspecified side

== ENCOUNTER 2017-07-16 14:08 | Outpatient (CLI) | payer OTHER | END 2017-07-16 14:09 | disposition home or self-care (01) | LOC: RHC-LAB 14:08 | PROVIDERS: ATTEND Nurse Practitioner Family | DX: J02.9 Acute pharyngitis, unspecified (principal) | CPT/HCPCS: 87651 ==

== ENCOUNTER 2017-08-01 09:17 | Outpatient (CLI) ==
--- NOTE | 2017-08-01 09:40 | DI ---
EXAM: Chest, 2 views. HISTORY: Cough COMPARISON: 03/10/2017 FINDING/IMPRESSION: Cardiomediastinal countours appear stable. There is no focal pulmonary consolid ation. No pleural effusion or pneumothorax. No acute cardiopulmonary process.
== END 2017-08-01 09:18 | disposition home or self-care (01) ==
LOC: RAD 09:17
PROVIDERS: ATTEND Nurse Practitioner Family
DX: R05 Cough (principal); R06.02 Shortness of breath; R53.83 Other fatigue

== ENCOUNTER 2017-08-14 20:20 | Emergency (ER) ==
[2017-08-14 20:26] VITALS: BMI 29.7
--- NOTE | 2017-08-14 20:32 | ED.PDOC ---
General ED Provider: Dr. GRACE SANDERS Chief Complaint: Shortness of Air Stated Complaint: Patient states she has a history of anxiety. Has chronic shortness of breath on home oxygen. States she was not feeling well today. Was feeling sleepy too what she tought was her lamictal but turned out to be her girlfriend's Imitrex. She then started to panic and get more short of breath and have chest tightness. Time Seen by Physician: 20:20 Information Source: Patient Exam Limitations: No limitations Primary Care Provider: HANNY NORTON Nursing and Triage Documentation Reviewed and Agree: Yes Reviewed sepsis parameters & appropriate labs ordered?: No System Inflammatory Response Syndrome: Not Applicable Sepsis Protocol: For patient's 13 years and over: Temp is 96.8 and below OR 101 and greater Pulse >90 BPM Resp >20/minute Acutely Altered Mental Status Are patient's symptoms suggestive of a new infection, such as: -Pneumonia -Skin, Soft Tissue -Endocarditis -UTI -Bone, Joint Infection -Implantable Device -Acute Abdominal Infection -Wound Infection -Meningitis -Blood Stream Catheter Infection -Unknown System Inflammatory Response Syndrome: Not Applicable Review of Systems - Review Of Systems Constitutional: Reports: No symptoms Eyes: Reports: No symptoms Ears, Nose, Mouth, Throat: Reports: No symptoms Respiratory: Reports: Cough, Short of air Cardiac: Reports: No symptoms GI: Reports: No symptoms : Reports: No symptoms Musculoskeletal: Reports: No symptoms Skin: Reports: No symptoms Neurological: Reports: Anxiety Endocrine: Reports: No symptoms Hematologic/Lymphatic: Reports: No symptoms All Other Systems: Reviewed and Negative Past Medical History - Past Medical History Previously Healthy: No Endocrine: Reports: DM 2 Cardiovascular: Reports: None Respiratory: Reports: COPD Hematological: Reports: None Gastrointestinal: Reports: None Genitourinary: Reports: None Neuro/Psych: Reports: Anxiety, Depression, PTSD Musculoskeletal: Reports: Arthritis, Joint Pain Cancer: Reports: None Last Menstrual Period: HYSTERECTOMY Other Pertinent Past Medical History: polinoidal cyst x2, bladder tuck x2, bunion surg x2 - Surgical History General Surgical History: Reports: Hysterectomy (hysterectomy, D and C x2), Cholecystectomy, Orthopedic (Rt gr toe surgery, tarsal tunnel decompression x2) , Other (polinoidal cyst x2, bladder tuck x2, bunion surg x2,, oral surg) - Family History Family History: Reports: Unknown - Social History Smoking Status: Current some day smoker, Heavy tobacco smoker Hx Substance Use: No Alcohol Screening: None - Immunizations Tetanus Shot up to Date: Yes Physical Exam - Physical Exam Appearance: Ill-appearing Ill-appearing: Mild Neck: Supple Respiratory: Breath sounds diminished Cardiovascular: RRR, Pulses normal, No rub, No murmur GI/: Soft, Nontender, No masses, Bowel sounds normal, No Organomegaly Musculoskeletal: Normal strength, ROM intact, No edema, No calf tenderness Skin: Warm, Dry, Normal color Neurological: Sensation intact, Motor intact, Reflexes intact, Cranial nerves intact, Alert, Oriented Psychiatric: Anxious Interpretation - Radiology Interpretation Radiology Interpretation By: ED Physician Radiology Results: No acute changes Exam Interpreted: Portable CXR - EKG Interpretation Time of EKG #1: 20:46 Rate: Normal Rhythm: Sinus Ectopy: None [place]: NL ST Segment: Other (Left aniterior fascicular block) Re-Evaluation - Re-Evaluation Time of Re-Evaluation: 21:18 Status: Improved Vital Signs Stable: Yes Appearance: NAD Lungs: Clear (better Air movement) Neuro: Alert and Oriented X3 Critical Care Note - Critical Care Note Total Time (mins): 0 Course - Course Hematology/Chemistry: 08/14/17 20:35 08/14/17 20:35 Orders, Labs, Meds: Lab Review 08/14/17 08/14/17 08/14/17 20:26 20:35 20:35 WBC 9.08 RBC 5.09 Hgb 16.4 H Hct 44.1 MCV 86.6 MCH 32.2 H MCHC 37.2 H RDW Coeff of Ian 11.1 L Plt Count 260 Immature Gran % (Auto) 0.9 Neut % (Auto) 48.3 Lymph % (Auto) 38.5 [place] % (Auto) 6.7 Eos % (Auto) 5.2 Baso % (Auto) 0.4 Immature Gran # (Auto) 0.1 Neut # (Auto) 4.4 Lymph # (Auto) 3.5 H Atkinson # (Auto) 0.6 Eos # (Auto) 0.5 Baso # (Auto) 0.0 Puncture Site Lb O2 Saturation 94.0 L ABG pH 7.469 H ABG pCO2 37.9 ABG pO2 66.0 L ABG HCO3 27.5 H ABG Total CO2 29 H ABG Base Excess 4 H Jose De Jesus Test + FiO2 % 21.0 Sodium 136 Potassium 4.2 Chloride 97 L Carbon Dioxide 24 Anion Gap 19.2 BUN 10 Creatinine 0.71 Estimated GFR (MDRD) 89.00 BUN/Creatinine Ratio 14.08 Glucose 429 H Calcium 9.4 Total Bilirubin 0.5 AST 15 ALT 26 Alkaline Phosphatase 109 H Total Creatine Kinase 60 Troponin I 0.0140 Total Protein 6.6 Albumin 3.2 L Globulin 3.4 Albumin/Globulin Ratio 0.94 Orders Category Date Time Status ABG DRAW REQUEST Stat CARDIO 08/14/17 20:26 Completed EKG-(ED ONLY) Stat CARDIO 08/14/17 20:22 Completed NEBULIZER TREATMENT Stat CARDIO 08/14/17 20:55 Completed ED WAREHOUSE SORTER APPLIED .ONCE EMERGENCY 08/14/17 20:22 Active ABG Stat LAB 08/14/17 20:26 Completed CBC W/ AUTO DIFF Stat LAB 08/14/17 20:35 Completed COMPREHENSIVE METABOLIC PANEL Stat LAB 08/14/17 20:35 Completed CREATINE KINASE Stat LAB 08/14/17 20:35 Completed TROPONIN I Stat LAB 08/14/17 20:35 Completed Insulin Regular, Human [Humulin R] MEDS 08/14/17 22:00 Discontinued 12 unit SUBCUT ONCE STA Ipratropium/Albuterol Neb [Duoneb] MEDS 08/14/17 20:55 Discontinued 1 vial NEB ONCE STA Methylprednisolone Sod Succ/Pf [Solu-Medrol 125 mg] MEDS 08/14/17 20:55 Discontinued 125 mg IVP ONCE STA CHEST, 1V AP ONLY Stat RADS 08/14/17 20:22 Ordered Medications Discontinued Medications Generic Name Dose Route Start Last Admin Trade Name Marvq PRN Reason Stop Dose Admin Albuterol/Ipratropium 1 vial 08/14/17 20:55 08/14/17 21:11 Duoneb NEB 08/14/17 20:56 1 vial ONCE STA Administration Insulin Human Regular 12 unit 08/14/17 22:00 08/14/17 22:08 Humulin R SUBCUT 08/14/17 22:01 12 unit ONCE STA Administration Methylprednisolone Sodium Succinate 125 mg 08/14/17 20:55 08/14/17 21:24 Solu-Medrol 125 Mg IVP 08/14/17 20:56 125 mg ONCE STA Administration Vital Signs: Temp Pulse Resp BP Pulse Ox 08/14/17 20:58 95 08/14/17 20:21 97.8 F 69 20 168/100 H 94 L Departure - Departure Time of Disposition: 22:50 Disposition: HOME SELF-CARE Discharge Problem: Hyperglycemia without ketosis, Empyema of lung, Anxiety Instructions: Emphysema (ED), Anxiety (ED), Diabetic Hyperglycemia (ED) Condition: Stable Pt referred to PMD for follow-up: Yes IPMP verified?: No Additional Instructions: Follow up with PCP in 2-3 days continue oxygen as prescribed Allergies/Adverse Reactions: Allergies divalproex sodium Allergy (Severe, Verified 05/03/17 09:27) Unknown oxcarbazepine [From Trileptal] Allergy (Severe, Verified 05/03/17 09:27) made m justynack kiwi Allergy (Intermediate, Verified 05/03/17:27) Vomiting acetaminophen [From Lortab] Adverse Reaction (Verified 05/03/17 09:27) aspirin [From Percodan] Adverse Reaction (Verified 05/03/17 09:27) codeine Adverse Reaction (Verified 05/03/17:27) hydrocodone bitartrate [From Lortab] Adverse Reaction (Verified 05/03/17 09:27) ibuprofen Adverse Reaction (Verified 05/03/17 09:27) ketorolac tromethamine [From Toradol] Adverse Reaction (Verified 05/03/17 09:27) metformin HCl [From Glucophage] Adverse Reaction (Verified 05/03/17 09:27) morphine Adverse Reaction (Verified 05/03/17 09:27) oxycodone HCl [From Percocet] Adverse Reaction (Verified 05/03/17 09:27) oxycodone terephthalate [From Percodan] Adverse Reaction (Verified 05/03/17 09: 27) peach [[place]] Adverse Reaction (Verified 05/03/17 09:27) propoxyphene napsylate [From Darvocet-N 100] Adverse Reaction (Verified 09:27) risperidone [From Risperdal] Adverse Reaction (Verified 05/03/17 09:27) elisa Adverse Reaction (Verified 05/03/17 09:27) tomato [Tomato] Adverse Reaction (Verified 05/03/17 09:27) ziprasidone HCl [From Geodon] Adverse Reaction (Verified 05/03/17 09:27) ziprasidone mesylate [From Geodon] Adverse Reaction (Verified 05/03/17 09:27) peaches Adverse Reaction (Uncoded 02/03/17 05:43) Home Medications: Ambulatory Orders Fluoxetine HCl [Prozac] 40 mg PO DAILY 02/20/14 Tramadol HCl 50 mg PO BID #14 tablet 12/21/16 Ipratropium [place] [Atrovent Hfa] 12.9 gm IH BID #1 hfa.aer.ad 02/07/17 Disposition Discussed With: Patient
[2017-08-14] MEDS ORDERED: DUONEB NEB STA (20:55)
[2017-08-14] MEDS ORDERED: SOLU-MEDROL 125 MG IVP STA (20:55)
[2017-08-14] MEDS ORDERED: HUMULIN R SUBCUT STA (22:00)
[2017-08-14 22:57] VITALS: BP 133/78; TEMP 97
--- NOTE | 2017-08-15 07:24 | DI ---
EXAM: Portable chest HISTORY: Chest pain COMPARISON: Two-view chest 08/01/2017 FINDINGS: The cardiomediastinal silhouette is stable. The lungs are clear bilaterally. No osseous abnormalities are identified. IMPRESSION: No evidence of pulmonary disease
== END 2017-08-14 23:05 | disposition home or self-care (01) ==
LOC: ED 20:20
DX: E11.65 Type 2 diabetes mellitus with hyperglycemia (principal); J43.9 Emphysema, unspecified; F41.9 Anxiety disorder, unspecified; J44.9 Chronic obstructive pulmonary disease, unspecified; Z79.899 Other long term (current) drug therapy; F17.210 Nicotine dependence, cigarettes, uncomplicated; R06.2 Wheezing; R06.02 Shortness of breath; T39.8X1A Poisoning by other nonopioid analgesics and antipyretics, not elsewhere classified, accidental (unintentional), initial encounter
CPT/HCPCS: 36415; 80053; 82550; 82803; 84484; 85025; 93005; 93010; 94640; 96374; 96375; 99284

== ENCOUNTER 2017-10-09 09:53 | Outpatient (CLI) ==
--- NOTE | 2017-10-09 15:33 | MRI ---
EXAM: MRI of the right hand without contrast COMPARISON: Right hand radiographs 06/06/2016 and right wrist radiographs 12/21/2016. HISTORY: Right hand pain. Knots along the palm of the hand. TECHNIQUE: Multiplanar noncontrast MR images of the right hand were acquired using a 1.2 Stacie magne t. FINDINGS: There is no evidence of an acute fracture, osteomyelitis or marrow infiltrating process. Mild degenerative spurring at the proximal distal interphalangeal joints. Mild degenerative changes of the first carpometacarpal joint. Physiologic amount of fluid throughout the visualized joints. There are gel capsules indicating the patient's palpable abnormalities along the palmar aspect of the second through fourth digits at the l evel of the metacarpals through the metacarpophalangeal joints. No focal drainable fluid collection at that site. Minimal thickening and nodularity of the underlying palmar aponeurosis which may repre sent sequela of palmar fibromatosis. This measures up to 2 mm in thickness at the level of a palpabl e abnormality along the palmar aspect of the second metacarpophalangeal joint. Low-level subcutaneous edema throughout the fingers. No focal soft tissue defect. No full-thickness tendon tear or tendon retraction. No evidence of bow-stringing of the tendons. IMPRESSION: 1. Minimal thickening and nodularity of the palmar aponeurosis at the level of the second through fo urth digits corresponding to the regions of palpable abnormality which may represent mild changes of palmar fibromatosis. Correlate clinically. Low-level subcutaneous edema without a drainable fluid c ollection. 2. No acute osseous abnormality. Mild osteoarthrosis.
== END 2017-10-09 09:54 | disposition home or self-care (01) ==
LOC: RAD 09:53
PROVIDERS: ATTEND Nurse Practitioner Family
DX: M79.641 Pain in right hand (principal); R22.31 Localized swelling, mass and lump, right upper limb
CPT/HCPCS: 36415; 86038; 86430

== ENCOUNTER 2017-10-27 01:41 | Emergency (ER) | payer OTHER ==
[2017-10-27 01:50] VITALS: BP 107/72; TEMP 97.1; BMI 24.0
[2017-10-27] MEDS ORDERED: DUONEB NEB STA (02:07)
--- NOTE | 2017-10-27 03:05 | CT ---
EXAM: CT chest without intravenous contrast 10/27/2017. Sagittal and coronal reformatted images obt ained HISTORY: Dyspnea COMPARISON: 02/05/2017 FINDINGS: The heart size appears within normal limits. There is no pericardial effusion. Stable nodular enlargement of the left lobe of the thyroid gland. The lungs appear well aerated. There is no pulmonary consolidation, effusion or pneumothorax. No pu lmonary mass. Limited views of the upper abdomen show diffuse hepatic steatosis post cholecystectomy. IMPRESSION: 1. Stable nodular enlargement of the left lobe of the thyroid gland. 2. No acute cardiopulmonary process. The lungs appear well aerated. 3. Hepatic steatosis.
--- NOTE | 2017-10-27 03:17 | ED.PDOC ---
General ED Provider: Dr. QIAN LEDESMA-ER Chief Complaint: Shortness of Air Stated Complaint: i m supposed to be taking advair but i cant afford it or any of my meds Time Seen by Physician: 01:45 Mode of Arrival: Walk-In Information Source: Patient Exam Limitations: No limitations Primary Care Provider: HANNY NORTON Nursing and Triage Documentation Reviewed and Agree: Yes Reviewed sepsis parameters & appropriate labs ordered?: Yes System Inflammatory Response Syndrome: Not Applicable Sepsis Protocol: For patient's 13 years and over: Temp is 96.8 and below OR 101 and greater Pulse >90 BPM Resp >20/minute Acutely Altered Mental Status Are patient's symptoms suggestive of a new infection, such as: -Pneumonia -Skin, Soft Tissue -Endocarditis -UTI -Bone, Joint Infection -Implantable Device -Acute Abdominal Infection -Wound Infection -Meningitis -Blood Stream Catheter Infection -Unknown Respiratory Complaint Exam - Respiratory Complaint/Exam Onset/Duration: 2 days Symptoms Are: Still present Timing: Constant, Intermittent Initial Severity: Mild Current Severity: Mild Location: Chest Character: Reports: Non-productive cough Associated Signs and Symptoms: Denies: Rapid breathing, Dyspnea, Fever, Chills, Chest pain, Pleuritic chest pain, Wheezing, Hemoptysis, Dizziness, Calf pain, Calf swelling, Edema, URI, Nasal congestion, Hoarseness, Sinus discomfort, Vomiting, Sore throat, Weight loss, Increased appetite History of Healthcare-Acquired Pneumonia: No Home Oxygen Use: No Recent Stress Test: No Recent Echo/LV Function: No Current Antibiotic Use: No Respiratory Distress: None Inadequate Respiratory Effort: No Dysphagia Present: No Stridor Present: No JVD Present: No Accessory Muscle Use: No Retractions: Not Present Diminished Breath Sounds: No Sinus Tenderness: None Grunting Respirations: No Kussmaul Respirations: No Differential Diagnoses: Asthma, COPD Exacerbation Review of Systems - Review Of Systems Constitutional: Reports: No symptoms Eyes: Reports: No symptoms Ears, Nose, Mouth, Throat: Reports: No symptoms Respiratory: Reports: Cough, Short of air Cardiac: Reports: No symptoms GI: Reports: No symptoms : Reports: No symptoms Musculoskeletal: Reports: No symptoms Skin: Reports: No symptoms Neurological: Reports: No symptoms Endocrine: Reports: No symptoms Hematologic/Lymphatic: Reports: No symptoms All Other Systems: Reviewed and Negative Past Medical History - Past Medical History Previously Healthy: No Endocrine: Reports: DM 2 Cardiovascular: Reports: None Respiratory: Reports: COPD Hematological: Reports: None Gastrointestinal: Reports: None Genitourinary: Reports: None Neuro/Psych: Reports: Anxiety, Depression, PTSD Musculoskeletal: Reports: Arthritis, Joint Pain Cancer: Reports: None Last Menstrual Period: PT HAS HAD A HYSTERECTOMY Other Pertinent Past Medical History: polinoidal cyst x2, bladder tuck x2, bunion surg x2 - Surgical History General Surgical History: Reports: Hysterectomy (hysterectomy, D and C x2), Cholecystectomy, Orthopedic (Rt gr toe surgery, tarsal tunnel decompression x2) , Other (polinoidal cyst x2, bladder tuck x2, bunion surg x2,, oral surg) - Family History Family History: Reports: Unknown - Social History Smoking Status: Current some day smoker, Heavy tobacco smoker Hx Substance Use: No Alcohol Screening: None - Immunizations Tetanus Shot up to Date: Yes Physical Exam - Physical Exam Appearance: Well-appearing, No pain distress, Well-nourished Eyes: RAMBO, EOMI, Conjunctiva clear ENT: Ears normal, Nose normal, Oropharynx normal Neck: Supple Respiratory: Airway patent, Breath sounds clear, Breath sounds equal, Respirations nonlabored Cardiovascular: RRR, Pulses normal, No rub, No murmur GI/: Soft, Nontender, No masses, Bowel sounds normal, No Organomegaly Musculoskeletal: Normal strength, ROM intact, No edema, No calf tenderness Skin: Warm, Dry, Normal color Neurological: Sensation intact Psychiatric: Affect appropriate, Mood appropriate Interpretation - Radiology Interpretation Radiology Interpretation By: Radiologist Radiology Results: Negative Exam Interpreted: CT Scan - EKG Interpretation Time of EKG #1: 03:17 Rate: Normal Rhythm: Sinus Ectopy: None Seney: NL ST Segment: Normal Interpretation: nsr Critical Care Note - Critical Care Note Total Time (mins): 0 Course - Course Hematology/Chemistry: 10/27/17 02:15 10/27/17 02:15 Orders, Labs, Meds: Lab Review 10/27/17 10/27/17 10/27/17 02:15 02:15 02:15 WBC 10.75 H RBC 4.98 Hgb 16.0 Hct 43.3 MCV 86.9 MCH 32.1 H MCHC 37.0 H RDW Coeff of Ian 11.9 Plt Count 226 Immature Gran % (Auto) 0.3 Neut % (Auto) 58.7 Lymph % (Auto) 25.9 Branch % (Auto) 8.7 Eos % (Auto) 5.9 Baso % (Auto) 0.5 Immature Gran # (Auto) 0.0 Neut # (Auto) 6.3 Lymph # (Auto) 2.8 Branch # (Auto) 0.9 Eos # (Auto) 0.6 Baso # (Auto) 0.1 Sodium 132 L Potassium 3.8 Chloride 96 L Carbon Dioxide 23 Anion Gap 16.8 BUN 19 H Creatinine 0.84 Estimated GFR (MDRD) 73.00 BUN/Creatinine Ratio 22.61 Glucose 466 H Calcium 9.4 Total Bilirubin 1.0 AST 14 L ALT 22 Alkaline Phosphatase 123 H Total Creatine Kinase 59 Troponin I < 0.0100 B-Natriuretic Peptide < 10 Total Protein 6.7 Albumin 3.2 L Globulin 3.5 Albumin/Globulin Ratio 0.91 Orders Category Date Time Status EKG-(ED ONLY) Stat CARDIO 10/27/17 02:07 Completed NEBULIZER TREATMENT Stat CARDIO 10/27/17 02:08 Completed BNP [B-TYPE NATRIURETIC PEPTIDE] Stat LAB 10/27/17 02:15 Completed CBC W/ AUTO DIFF Stat LAB 10/27/17 02:15 Completed COMPREHENSIVE METABOLIC PANEL Stat LAB 10/27/17 02:15 Completed CREATINE KINASE Stat LAB 10/27/17 02:15 Completed TROPONIN I Stat LAB 10/27/17 02:15 Completed Fluticasone/Salmeterol 250/50 [Advair 250-50 Diskus] MEDS 10/27/17 03:20 Discontinued 1 puff IH .STK-MED ONE Fluticasone/Salmeterol 250/50 [Advair 250-50 Diskus] MEDS 10/27/17 03:30 Discontinued 1 puff IH BID Ipratropium/Albuterol Neb [Duoneb] MEDS 10/27/17 02:07 Discontinued 1 vial NEB ONCE STA CT CHEST W/O CONTRAST Stat RADS 10/27/17 02:07 Completed Medications Discontinued Medications Generic Name Dose Route Start Last Admin Trade Name Freq PRN Reason Stop Dose Admin Albuterol/Ipratropium 1 vial 10/27/17 02:07 10/27/17 02:14 Duoneb NEB 10/27/17 02:08 1 vial ONCE STA Administration Fluticasone/Salmeterol 1 puff 10/27/17 03:30 10/27/17 03:25 Advair 250-50 Diskus IH 1 puff BID SHARRI Administration Vital Signs: Temp Pulse Resp BP Pulse Ox 10/27/17 01:42 97.1 F L 92 H 16 107/72 93 L Departure - Departure Time of Disposition: 03:17 Disposition: HOME SELF-CARE Discharge Problem: Asthma Qualifiers: Asthma severity: mild Asthma persistence: intermittent Asthma complication type : uncomplicated Qualified Code(s): J45.20 - Mild intermittent asthma, uncomplicated Instructions: Asthma (ED) Condition: Good Pt referred to PMD for follow-up: Yes IPMP verified?: No Additional Instructions: f/u with pcp and explain u cannot afford your medications Allergies/Adverse Reactions: Allergies divalproex sodium Allergy (Severe, Verified 10/27/17 01:53) Unknown oxcarbazepine [From Trileptal] Allergy (Severe, Verified 10/27/17 01:53) made m esick kiwi Allergy (Intermediate, Verified 10/27/17 01:53) Vomiting acetaminophen [From Percocet] Adverse Reaction (Verified 10/27/17 01:53) codeine Adverse Reaction (Verified 10/27/17 01:53) hydrocodone bitartrate [From Lortab] Adverse Reaction (Verified 10/27/17 01:53) ibuprofen Adverse Reaction (Verified 10/27/17 01:53) ketorolac tromethamine [From Toradol] Adverse Reaction (Verified 10/27/17 01:53) metformin HCl [From Glucophage] Adverse Reaction (Verified 10/27/17 01:53) morphine Adverse Reaction (Verified 10/27/17 01:53) oxycodone [From Percocet] Adverse Reaction (Verified 10/27/17 01:53) oxycodone HCl [From Percocet] Adverse Reaction (Verified 10/27/17 01:53) oxycodone terephthalate [From Percodan] Adverse Reaction (Verified 10/27/17 01: 53) peach [Lamar] Adverse Reaction (Verified 10/27/17 01:53) propoxyphene napsylate [From Darvocet-N 100] Adverse Reaction (Verified 01:53) risperidone [From Risperdal] Adverse Reaction (Verified 10/27/17 01:53) elisa Adverse Reaction (Verified 10/27/17 01:53) tomato [Tomato] Adverse Reaction (Verified 10/27/17 01:53) ziprasidone HCl [From Geodon] Adverse Reaction (Verified 10/27/17 01:53) ziprasidone mesylate [From Geodon] Adverse Reaction (Verified 10/27/17 01:53) peaches Adverse Reaction (Uncoded 10/27/17 01:53) Home Medications: Ambulatory Orders Lamotrigine [Lamictal] 300 mg PO BEDTIME 10/27/17 Pantoprazole Sodium [Protonix] 40 mg PO BIDAC 10/27/17 Disposition Discussed With: Patient
[2017-10-27] MEDS ORDERED: ADVAIR 250-50 DISKUS IH ONE (03:20)
[2017-10-27] MEDS ORDERED: ADVAIR 250-50 DISKUS IH SCH (03:30)
== END 2017-10-27 03:29 | disposition home or self-care (01) ==
LOC: ED 01:41
DX: J45.20 Mild intermittent asthma, uncomplicated (principal); R06.02 Shortness of breath; E11.9 Type 2 diabetes mellitus without complications; F17.210 Nicotine dependence, cigarettes, uncomplicated; J44.9 Chronic obstructive pulmonary disease, unspecified; Z91.14 Patient's other noncompliance with medication regimen
CPT/HCPCS: 36415; 80053; 82550; 83880; 84484; 85025; 93005; 93010; 94640; 99283

== ENCOUNTER 2017-11-14 22:14 | Emergency (ER) | payer OTHER ==
[2017-11-14 22:24] VITALS: BP 109/74; TEMP 97.1; BMI 23.6
[2017-11-14] MEDS ORDERED: ZOFRAN 4 MG/2 ML IM STA (23:04)
--- NOTE | 2017-11-14 23:36 | ED.PDOC ---
General ED Provider: Dr. SVITLANA KOCH Chief Complaint: Nausea/Vomiting Stated Complaint: Diarrhea 3-4 times per day, nausea no fever or chills Time Seen by Physician: 23:34 Mode of Arrival: Walk-In Information Source: Patient Primary Care Provider: HANNY NORTON Nursing and Triage Documentation Reviewed and Agree: Yes Does patient meet sepsis criteria?: No If yes, has appropriate treatment been initiated?: No System Inflammatory Response Syndrome: Not Applicable Sepsis Protocol: For patient's 13 years and over: Temp is 96.8 and below OR 101 and greater Pulse >90 BPM Resp >20/minute Acutely Altered Mental Status Are patient's symptoms suggestive of a new infection, such as: -Pneumonia -Skin, Soft Tissue -Endocarditis -UTI -Bone, Joint Infection -Implantable Device -Acute Abdominal Infection -Wound Infection -Meningitis -Blood Stream Catheter Infection -Unknown GI Complaint Exam - Vomiting/Diarrhea Complaint/Exam Symptoms Are: Resolved Episodes of Diarrhea Over Last 24 Hours: 5 Initial Severity: Moderate Current Severity: Mild Character of Vomiting: Reports: Non-bilious Character of Diarrhea: Reports: Watery Aggravating: Reports: Food Alleviating: Reports: None Associated Signs and Symptoms: Denies: Dizziness, Light-headedness, Melena, Hematemesis, Fever, Abdominal pain, Cramping Recent Positive Test: No Use of Oral Contraceptives: No Use of Depoprovera: No Compliant With Contraceptive Use: No Non-GI Risk Factors: Reports: None Surgical Obstruction Risk Factors: Reports: None Related Surgical History: Reports: None Abdominal Findings: Present: None Differential Diagnoses: Viral Gastroenteritis, Bacterial Gastroenteritis Review of Systems - Review Of Systems Constitutional: Reports: No symptoms Eyes: Reports: No symptoms Ears, Nose, Mouth, Throat: Reports: No symptoms Respiratory: Reports: No symptoms Cardiac: Reports: No symptoms GI: Reports: Diarrhea : Reports: No symptoms Musculoskeletal: Reports: No symptoms Skin: Reports: No symptoms Neurological: Reports: No symptoms Endocrine: Reports: No symptoms Hematologic/Lymphatic: Reports: No symptoms All Other Systems: Reviewed and Negative Past Medical History - Past Medical History Previously Healthy: No Endocrine: Reports: DM 2 Cardiovascular: Reports: None Respiratory: Reports: COPD Hematological: Reports: None Gastrointestinal: Reports: None Genitourinary: Reports: None Neuro/Psych: Reports: Anxiety, Depression, PTSD Musculoskeletal: Reports: Arthritis, Joint Pain Cancer: Reports: None Last Menstrual Period: na Other Pertinent Past Medical History: polinoidal cyst x2, bladder tuck x2, bunion surg x2 - Surgical History General Surgical History: Reports: Hysterectomy (hysterectomy, D and C x2), Cholecystectomy, Orthopedic (Rt gr toe surgery, tarsal tunnel decompression x2) , Other (polinoidal cyst x2, bladder tuck x2, bunion surg x2,, oral surg) - Family History Family History: Reports: Unknown - Social History Smoking Status: Current some day smoker, Heavy tobacco smoker Hx Substance Use: No Alcohol Screening: None - Immunizations Tetanus Shot up to Date: No (unknown) Physical Exam - Physical Exam Appearance: Well-appearing, No pain distress, Well-nourished Eyes: RAMBO, EOMI, Conjunctiva clear ENT: Ears normal, Nose normal, Oropharynx normal Respiratory: Airway patent, Breath sounds clear, Breath sounds equal, Respirations nonlabored Cardiovascular: RRR, Pulses normal, No rub, No murmur GI/: Soft, Nontender, No masses, Bowel sounds normal, No Organomegaly Musculoskeletal: Normal strength, ROM intact, No edema, No calf tenderness Skin: Warm, Dry, Normal color Neurological: Sensation intact, Motor intact, Reflexes intact, Cranial nerves intact, Alert, Oriented Psychiatric: Affect appropriate, Mood appropriate Critical Care Note - Critical Care Note Total Time (mins): 30 Course - Course Hematology/Chemistry: 11/14/17 23:24 Orders, Labs, Meds: Lab Review 11/14/17 23:24 WBC 6.58 RBC 4.69 Hgb 14.9 Hct 40.7 MCV 86.8 MCH 31.8 H MCHC 36.6 H RDW Coeff of Ian 11.8 Plt Count 215 Immature Gran % (Auto) 0.3 Neut % (Auto) 53.6 Lymph % (Auto) 30.4 Meade % (Auto) 10.0 Eos % (Auto) 5.2 Baso % (Auto) 0.5 Immature Gran # (Auto) 0.0 Neut # (Auto) 3.5 Lymph # (Auto) 2.0 Meade # (Auto) 0.7 Eos # (Auto) 0.3 Baso # (Auto) 0.0 Orders Category Date Time Status AMYLASE Stat LAB 11/14/17 23:24 Received CBC W/ AUTO DIFF Stat LAB 11/14/17 23:24 Completed COMPREHENSIVE METABOLIC PANEL Stat LAB 11/14/17 23:24 Received LIPASE Stat LAB 11/14/17 23:24 Received URINALYSIS C & S IF INDICATED Stat LAB 11/14/17 23:04 Uncollected Ondansetron HCl/Pf [Zofran 4 mg/2 ml] MEDS 11/14/17 23:04 Discontinued 4 mg IM ONCE STA Medications Discontinued Medications Generic Name Dose Route Start Last Admin Trade Name Robert PRN Reason Stop Dose Admin Ondansetron HCl 4 mg 11/14/17 23:04 11/14/17 23:25 Zofran 4 Mg/2 Ml IM 11/14/17 23:05 4 mg ONCE STA Administration Vital Signs: Temp Pulse Resp BP Pulse Ox 11/14/17 22:17 97.1 F L 99 H 20 109/74 89 L Departure - Departure Time of Disposition: 23:36 Disposition: HOME SELF-CARE Discharge Problem: Gastroenteritis Instructions: Gastroenteritis (ED) Condition: Stable Pt referred to PMD for follow-up: Yes IPMP verified?: No Additional Instructions: INCREASE HYDRATION TYLENOL PROBIOTICS IF NOT BETTER F/U WITH PMD Prescriptions: Ondansetron [Zofran Odt] 4 mg PO Q8H #20 tab.rapdis Allergies/Adverse Reactions: Allergies divalproex sodium Allergy (Severe, Verified 10/27/17 01:53) Unknown oxcarbazepine [From Trileptal] Allergy (Severe, Verified 10/27/17 01:53) made m annette kiwi Allergy (Intermediate, Verified 10/27/17 01:53) Vomiting acetaminophen [From Percocet] Adverse Reaction (Verified 10/27/17 01:53) codeine Adverse Reaction (Verified 10/27/17 01:53) hydrocodone bitartrate [From Lortab] Adverse Reaction (Verified 10/27/17 01:53) ibuprofen Adverse Reaction (Verified 10/27/17 01:53) ketorolac tromethamine [From Toradol] Adverse Reaction (Verified 10/27/17 01:53) metformin HCl [From Glucophage] Adverse Reaction (Verified 10/27/17 01:53) morphine Adverse Reaction (Verified 10/27/17 01:53) oxycodone [From Percocet] Adverse Reaction (Verified 10/27/17 01:53) oxycodone HCl [From Percocet] Adverse Reaction (Verified 10/27/17 01:53) oxycodone terephthalate [From Percodan] Adverse Reaction (Verified 10/27/17 01: 53) peach [Cole] Adverse Reaction (Verified 10/27/17 01:53) propoxyphene napsylate [From Darvocet-N 100] Adverse Reaction (Verified 01:53) risperidone [From Risperdal] Adverse Reaction (Verified 10/27/17 01:53) elisa Adverse Reaction (Verified 10/27/17 01:53) tomato [Tomato] Adverse Reaction (Verified 10/27/17 01:53) ziprasidone HCl [From Geodon] Adverse Reaction (Verified 10/27/17 01:53) ziprasidone mesylate [From Geodon] Adverse Reaction (Verified 10/27/17 01:53) peaches Adverse Reaction (Uncoded 10/27/17 01:53) Home Medications: Ambulatory Orders Lamotrigine [Lamictal] 300 mg PO BEDTIME 10/27/17 Pantoprazole Sodium [Protonix] 40 mg PO BIDAC 10/27/17 Clonazepam [Klonopin] 1 mg PO BID 10/29/17 Fluoxetine HCl [Prozac] 40 mg PO BID 10/29/17 Fluoxetine HCl [Prozac] 60 mg PO DAILY 11/14/17 Ondansetron [Zofran Odt] 4 mg PO Q8H #20 tab.rapdis 11/14/17 Disposition Discussed With: Patient, Family
[2017-11-15] MEDS ORDERED: HUMULIN R ONE (00:14)
[2017-11-15] MEDS ORDERED: HUMULIN R SUBCUT STA (00:28)
== END 2017-11-15 01:35 | disposition home or self-care (01) ==
LOC: ED 22:14
DX: K52.9 Noninfective gastroenteritis and colitis, unspecified (principal); F17.210 Nicotine dependence, cigarettes, uncomplicated
CPT/HCPCS: 36415; 80053; 81001; 82150; 83690; 85025; 96372; 99283

== ENCOUNTER 2017-12-11 08:36 | Outpatient (CLI) | END 2017-12-11 08:37 | disposition home or self-care (01) | LOC: LAB 08:36 | DX: Z79.899 Other long term (current) drug therapy (principal) | CPT/HCPCS: 36415; 80053; 80061; 81001; 83036; 84443; 85025; 87086; 87186 ==

== ENCOUNTER 2018-03-20 15:41 | Outpatient (CLI) | payer OTHER ==
--- NOTE | 2018-03-20 16:52 | CT ---
EXAM: CT of the head without contrast History: Headache. Comparison: Head CT 05/09/2016 Technique: Multiplanar CT images through the head were obtained without the administration of IV con trast Findings: The visualized paranasal sinuses and mastoid air cells are clear in general. No acute cande varial abnormalities. Intracranially the ventricular and cisternal spaces are normal in size, shape and configuration for a patient of this age. No dominant mass or midline shift. No hydrocephalous. No acute intracranial hemorrhage or abnormal extraaxial fluid collections. Impression: No acute intracranial process.
== END 2018-03-20 15:42 | disposition home or self-care (01) ==
LOC: RAD 15:41
PROVIDERS: ATTEND Nurse Practitioner Family
DX: R51 Headache (principal)

== ENCOUNTER 2018-06-10 17:01 | Emergency (ER) | payer OTHER ==
[2018-06-10 17:05] VITALS: BP 128/77; TEMP 98.3; BMI 24.0
--- NOTE | 2018-06-10 17:30 | ED.PDOC ---
General ED Provider: Dr. POLLY CHUN Chief Complaint: Extremity Pain/Injury Stated Complaint: this is left upper leg pain for a period of several weeks . pt denied new injury totally ambulatory with no pain or discomfor in the emergency room Time Seen by Physician: 17:00 (seen with gordon at all time ) Mode of Arrival: Walk-In Information Source: Patient Exam Limitations: No limitations Primary Care Provider: HANNY NORTON Nursing and Triage Documentation Reviewed and Agree: Yes (GORDON TORRES AT ALL TIMES ) Does patient meet sepsis criteria?: No System Inflammatory Response Syndrome: Not Applicable Sepsis Protocol: For patient's 13 years and over: Temp is 96.8 and below OR 101 and greater Pulse >90 BPM Resp >20/minute Acutely Altered Mental Status Are patient's symptoms suggestive of a new infection, such as: -Pneumonia -Skin, Soft Tissue -Endocarditis -UTI -Bone, Joint Infection -Implantable Device -Acute Abdominal Infection -Wound Infection -Meningitis -Blood Stream Catheter Infection -Unknown Musculoskeletal Complaint Exam - Lower Extremity Complaint/Exam Location of Pain: Reports: Left, Leg, Thigh. Denies: Ankle (PAIN CHRONIC NO RECENT INJURY NO NUMBNESS ), Knee, Hip Mechanism of Injury: Reports: No known trauma Onset/Duration: chronic Symptoms Are: Still present Onset of Pain: Reports: Immediate Initial Severity: Moderate Current Severity: None Character: Reports: Aching Alleviating: Reports: None Aggravating: Reports: None Able to Bear Weight: Yes (walking with NO ISSUES ) Review of Systems - Review Of Systems Constitutional: Reports: No symptoms Eyes: Reports: No symptoms Ears, Nose, Mouth, Throat: Reports: No symptoms Respiratory: Reports: No symptoms Cardiac: Reports: No symptoms GI: Reports: No symptoms : Reports: No symptoms Musculoskeletal: Reports: Joint pain (LEFT LEG) Skin: Reports: No symptoms Neurological: Reports: No symptoms Endocrine: Reports: No symptoms Hematologic/Lymphatic: Reports: No symptoms All Other Systems: Reviewed and Negative Past Medical History - Past Medical History Previously Healthy: No Endocrine: Reports: DM 2 Cardiovascular: Reports: None Respiratory: Reports: COPD Hematological: Reports: None Gastrointestinal: Reports: None Genitourinary: Reports: None Neuro/Psych: Reports: Anxiety, Depression, PTSD Musculoskeletal: Reports: Arthritis, Joint Pain Cancer: Reports: None Last Menstrual Period: none Other Pertinent Past Medical History: polinoidal cyst x2, bladder tuck x2, bunion surg x2 - Surgical History General Surgical History: Reports: Hysterectomy (hysterectomy, D and C x2), Cholecystectomy, Orthopedic (Rt gr toe surgery, tarsal tunnel decompression x2) , Other (polinoidal cyst x2, bladder tuck x2, bunion surg x2,, oral surg) - Family History Family History: Reports: Unknown - Social History Smoking Status: Current some day smoker, Heavy tobacco smoker Hx Substance Use: No Alcohol Screening: None Physical Exam - Physical Exam Appearance: Well-appearing, No pain distress, Well-nourished Eyes: RAMBO, EOMI, Conjunctiva clear ENT: Ears normal, Nose normal, Oropharynx normal Respiratory: Airway patent, Breath sounds clear, Breath sounds equal, Respirations nonlabored Cardiovascular: RRR, Pulses normal, No rub, No murmur GI/: Soft, Nontender, No masses, Bowel sounds normal, No Organomegaly Musculoskeletal: Normal strength (PAIN LIMITED TO UPPER LEG THE KNEE, TIBFIBM FOOT AND ANKLE IS NOT INVOLVED ), ROM intact, No edema, No calf tenderness Skin: Warm, Dry, Normal color Neurological: Sensation intact, Motor intact, Reflexes intact, Cranial nerves intact, Alert, Oriented Psychiatric: Affect appropriate, Mood appropriate Critical Care Note - Critical Care Note Total Time (mins): 0 Course - Course Vital Signs: Temp Pulse Resp BP Pulse Ox 06/10/18 17:01 98.3 F 97 H 20 128/77 97 Departure - Departure Time of Disposition: 17:31 (PT HAD NO PAIN ON THE EXAM HAS NO NEUROVASCULAR ISSUES INVOLVING THE RIGHT LEG TOTALLY AMBULATORY WITH NO PAIN OR DISMFORT. I TOLD THE PT FOLLOW UP WITH [facility] WITH ORTHO REFERRAL , PT SAID THEY WILL SEND ME AGAIN OUT HERE. I INFORMED THE PT THAT SHE HAS NO LIMB TREATENING ISSUE, SHE HAS BEEN WALKING ON IT IN THE EMERGENCY ROOM WALKED TO BATH ROOM SEVERAL TIMES AND WHEN CONFRONTED WITH ISSUE OF THE CHRONIC PAIN SHE DID NOT LIKE MY RESPONSE AND WALKED OUT OF THE EMERGENCY ROOM WITH OUT DISCHARGE PAPERS. ONCE AGAIN THIS ISSUE IS A CHRONIC PAIN THAT HAS TO BE FOLLOWED UP AT CLINIC WITH ORTHO REFERRAL OR ANY OTHER METHODS OF THERAPY LIKE P.T ECT OUT PT.) Disposition: HOME SELF-CARE Discharge Problem: Leg pain, right Instructions: Leg Pain (ED) Condition: Good Pt referred to PMD for follow-up: Yes IPMP verified?: No Additional Instructions: Please call your Family Physician as soon as possible to schedule a follow-up appointment. Allergies/Adverse Reactions: Allergies divalproex sodium Allergy (Severe, Verified 06/10/18 17:06) Unknown oxcarbazepine [From Trileptal] Allergy (Severe, Verified 06/10/18 17:06) made m esick kiwi Allergy (Intermediate, Verified 06/10/18 17:06) Vomiting broccoli Allergy (Mild, Verified 06/10/18 17:06) n/v, diarrhea acetaminophen [From Percocet] Adverse Reaction (Verified 06/10/18 17:06) codeine Adverse Reaction (Verified 06/10/18 17:06) hydrocodone bitartrate [From Lortab] Adverse Reaction (Verified 06/10/18 17:06) ibuprofen Adverse Reaction (Verified 06/10/18 17:06) ketorolac tromethamine [From Toradol] Adverse Reaction (Verified 06/10/18 17:06) metformin HCl [From Glucophage] Adverse Reaction (Verified 06/10/18 17:06) morphine Adverse Reaction (Verified 06/10/18 17:06) oxycodone [From Percocet] Adverse Reaction (Verified 06/10/18 17:06) oxycodone HCl [From Percocet] Adverse Reaction (Verified 06/10/18 17:06) oxycodone terephthalate [From Percodan] Adverse Reaction (Verified 06/10/18 17: 06) peach [Dickenson] Adverse Reaction (Verified 06/10/18 17:06) propoxyphene napsylate [From Darvocet-N 100] Adverse Reaction (Verified 17:06) risperidone [From Risperdal] Adverse Reaction (Verified 06/10/18 17:06) elisa Adverse Reaction (Verified 06/10/18 17:06) tomato [Tomato] Adverse Reaction (Verified 06/10/18 17:06) ziprasidone HCl [From Geodon] Adverse Reaction (Verified 06/10/18 17:06) ziprasidone mesylate [From Geodon] Adverse Reaction (Verified 06/10/18 17:06) peaches Adverse Reaction (Uncoded 10/27/17 01:53) Home Medications: Ambulatory Orders Lamotrigine [Lamictal] 300 mg PO BEDTIME 10/27/17 Pantoprazole Sodium [Protonix] 40 mg PO BIDAC 10/27/17 Fluoxetine HCl [Prozac] 40 mg PO BID 10/29/17 Fluoxetine HCl [Prozac] 60 mg PO DAILY 11/14/17 Clonazepam [Klonopin] 2 mg PO TID 03/20/18
== END 2018-06-10 17:40 | disposition home or self-care (01) ==
LOC: ED 17:01
DX: M79.604 Pain in right leg (principal); G89.29 Other chronic pain; F17.210 Nicotine dependence, cigarettes, uncomplicated
CPT/HCPCS: 99281

== ENCOUNTER 2018-06-11 14:36 | Outpatient (CLI) | payer OTHER ==
[2018-06-10 17:05] VITALS: BMI 24.0
--- NOTE | 2018-06-11 16:26 | DI ---
Exam: Two views of the right femur. Comparison: None available. Reason for exam: Pain in right thigh. FINDINGS: No acute fracture or malalignment. The right femoral cortex appears intact. No unexplain ed calcific soft tissue density or radiopaque retained foreign body. Impression: No acute fracture or malalignment is seen in the right femur.
--- NOTE | 2018-06-11 16:27 | DI ---
Exam: Four views of the right knee. Comparison: 02/26/2013. Reason for exam: Pain in right knee FINDINGS: No acute fracture or malalignment. The joint spaces appear well maintained. No unexplain ed calcific soft tissue density or radiopaque retained foreign body. Impression: No acute fracture or malalignment is seen in the right knee.
--- NOTE | 2018-06-11 16:27 | DI ---
Exam: Two views of the right hip. Comparison: CT abdomen pelvis performed 05/02/2015. Reason for exam: Pain in right hip FINDINGS: No acute fracture or malalignment. The joint spaces appear well maintained. No unexplain ed calcific soft tissue density or radiopaque retained foreign body. Impression: No acute fracture or malalignment in the right hip.
== END 2018-06-11 14:37 | disposition home or self-care (01) ==
LOC: RAD 14:36
PROVIDERS: ATTEND Nurse Practitioner Family
DX: M25.561 Pain in right knee (principal); M79.651 Pain in right thigh; M25.551 Pain in right hip

== ENCOUNTER 2018-06-16 08:04 | Outpatient (CLI) | payer OTHER | END 2018-06-16 08:05 | disposition home or self-care (01) | LOC: RHC-LAB 08:04 | PROVIDERS: ATTEND Nurse Practitioner Family | DX: E11.9 Type 2 diabetes mellitus without complications (principal); E78.5 Hyperlipidemia, unspecified; I10 Essential (primary) hypertension | CPT/HCPCS: 36415; 80053; 80061; 83036; 84443; 85025 ==

== ENCOUNTER 2018-07-03 14:11 | Outpatient (CLI) | payer OTHER ==
--- NOTE | 2018-07-06 08:33 | MAMMO ---
EXAM: Bilateral digital screening mammogram (2-D and 3-D) History: Screening Comparison: Bilateral mammogram 03/10/2017 Findings: MLO and CC views of bilateral breasts demonstrate promptly fat replaced breast parenchyma. CAD was reviewed by the radiologist. Tomosynthesis was performed. There are no suspicious masses, no suspicious microcalcifications and no architectural distortions Impression: Benign stable mammogram. Recommend followup routine screening mammography in 1 year. BIRADS 2, benign
== END 2018-07-03 14:12 | disposition home or self-care (01) ==
LOC: RAD 14:11
PROVIDERS: ATTEND Nurse Practitioner Family
DX: Z12.31 Encounter for screening mammogram for malignant neoplasm of breast (principal)